=== PATIENT | female | born 1960 ===

== ENCOUNTER → 2018-09-29 08:51 | Outpatient (CLI) | payer OTHER, MEDICAID, SELFPAY ==
--- NOTE | 2018-09-29 08:53 | DI.RAD.S_ITS ---
PROCEDURE: XR CHEST 2V INDICATIONS: pleuritic chest pain TECHNIQUE: 2 views of the chest were acquired. COMPARISON: [facility], , CHEST 2 VIEW, 06/18/2010, 15:46. FINDINGS: Surgical changes and devices: None. Lungs and pleura: No pleural effusions or pneumothorax. Lungs are clear. Mediastinum: Mediastinal contours are normal. Heart size is normal. Bones and chest wall: No suspicious bony abnormalities. Soft tissues appear unremarkable. IMPRESSION: No acute cardiopulmonary disease process. Dictated by: Cayla Payan MD, PhD on 09/29/2018 at 12:13 Approved by: Cayla Payan MD, PhD on 09/29/2018 at 12:13
== END ==
PROVIDERS: Visit Provider Physician Assistant
DX: R07.81 Pleurodynia (principal); R05 Cough
CPT/HCPCS: 71046

== ENCOUNTER → 2020-07-23 14:12 | Outpatient (CLI) | payer OTHER, MEDICAID, SELFPAY ==
--- NOTE | 2020-07-23 14:16 | DI.RAD.S_ITS ---
PROCEDURE: XR CHEST 2V INDICATIONS: shortness of breath TECHNIQUE: 2 views of the chest were acquired. COMPARISON: [facility], , XR CHEST 2V, 09/29/2018, 9:13. FINDINGS: Surgical changes and devices: None. Lungs and pleura: Lungs are clear. No pleural effusions or pneumothorax. Mediastinum: Mediastinal contours are normal. Heart size is normal. Bones and chest wall: No suspicious bony abnormalities. Soft tissues appear unremarkable. IMPRESSION: No acute cardiopulmonary findings. Dictated by: Suzan Murray M.D. on 07/23/2020 at 16:24 Approved by: Suzan Murray M.D. on 07/23/2020 at 16:24
--- NOTE | 2020-07-23 14:16 | DI.RAD.S_ITS ---
PROCEDURE: XR HUMERUS RT 2V INDICATIONS: pain in right upper arm no trauma TECHNIQUE: 2 views of the humerus were acquired. COMPARISON: None. FINDINGS: Bones: No fractures or dislocations. No suspicious bony lesions. Soft tissues: No suspicious soft tissue calcifications. IMPRESSION: No acute radiographic findings. If there is continued pain, followup exam or additional imaging such as MRI or CT could be performed for further assessment. Dictated by: Suzan Murray M.D. on 07/23/2020 at 16:24 Approved by: Suzan Murray M.D. on 07/23/2020 at 16:25
== END ==
PROVIDERS: PCP Registered Nurse; Referring Provider Registered Nurse; Visit Provider Registered Nurse
DX: R06.02 Shortness of breath (principal); M79.621 Pain in right upper arm
CPT/HCPCS: 71046; 73060

== ENCOUNTER → 2020-07-31 14:20 | Outpatient (CLI) | payer OTHER, MEDICAID, SELFPAY ==
[2020-08-03 07:40] LABS: Fecal Immunochemical Test Negative (Negative)
== END ==
PROVIDERS: PCP Registered Nurse; Referring Provider Registered Nurse; Visit Provider Registered Nurse
DX: Z12.11 Encounter for screening for malignant neoplasm of colon (principal)
CPT/HCPCS: 82274

== ENCOUNTER → 2021-10-13 11:41 | Outpatient (CLI) | payer OTHER, MEDICAID, SELFPAY ==
--- NOTE | 2021-10-13 11:42 | DI.MG.S_ITS ---
BILATERAL DIGITAL SCREENING MAMMOGRAM 3D/2D WITH CAD: 10/13/2021 CLINICAL: Routine screening. Comparison is made to exam dated: 10/18/2007 mammogram - [facility]. The tissue of both breasts is predominantly fatty. Current study was also evaluated with a Computer Aided Detection (CAD) system. There is an asymmetry with an indistinct margin in the right breast anterior depth inferior region seen on the mediolateral oblique view only. No other significant masses, calcifications, or other findings are seen in either breast. IMPRESSION: INCOMPLETE: NEEDS ADDITIONAL IMAGING EVALUATION The asymmetry in the right breast is indeterminate. Additional views with possible ultrasound are recommended. This exam was interpreted at Station ID: [id number]. NOTE: For mammograms, a report in lay terms will be sent to the patient. Approximately 15% of breast malignancies will not be visualized mammographically. In the management of a palpable breast mass, a negative mammogram must not discourage biopsy of a clinically suspicious lesion. Electronically Signed By: Devon Bruner M.D., jr/telma:10/13/2021 12:51:59 letter sent: Additional Imaging Needed ACR BI-RADS Category 0: Incomplete [id number]
== END ==
PROVIDERS: PCP Registered Nurse; Referring Provider Registered Nurse; Visit Provider Registered Nurse
DX: Z12.31 Encounter for screening mammogram for malignant neoplasm of breast (principal)
CPT/HCPCS: 77063; 77067

== ENCOUNTER → 2021-10-14 08:51 | Outpatient (CLI) | payer OTHER, MEDICAID, SELFPAY ==
[2021-10-14 09:52] LABS: Add Manual Diff / Slide Review NO; Basophils Absolute Auto 100 /uL (0-100); Basophils Percent Auto 1.3 % (0-2); Eosinophils Absolute Auto 100 /uL (0-450); Eosinophils Percent Auto 2.2 % (2-4); Hematocrit 40.7 % (36-46); Hemoglobin 13.9 g/dL (12.0-16.0); Lymphocytes Absolute Auto 1500 /uL (1100-4500); Mean Corpuscular HGB Conc 34.1 % (30-36); Mean Corpuscular Hemoglobin 31.3 PG (26-34); Monocytes Absolute Auto 400 /uL (0-900); Monocytes Percent Auto 8.9 % (3-14); Neutrophils Absolute Auto 2400 /uL (1500-7000); Neutrophils Percent Auto 53.6 % (50-75); Platelet Count 219 X10^3/uL (150-400); Red Blood Cell Count 4.43 X10^6/uL (4.0-5.2); Red Cell Distribution Width 14.1 % (11.6-14.8); White Blood Cell Count 4.4 X10^3/uL (4.5-11.0)
[2021-10-14 09:53] LABS: COVID19 -Nasal RAPID Negative (Negative)
[2021-10-14 10:19] LABS: INR 1.1 (0.9-1.3); Prothrombin Time 11.9 SECONDS (10.1-12.7)
[2021-10-14 10:38] LABS: Alanine Aminotransferase 24 IU/L (<35); Albumin 4.3 g/dL (3.5-5.0); Albumin Globulin Ratio 1.5 (1.0-2.8); Alkaline Phosphatase 91 U/L (38-126); Aspartate Aminotransferase 30 IU/L (14-36); BUN Creatinine Ratio 19.8 (6-22); Bilirubin Total 0.4 mg/dL (0.2-1.3); Blood Urea Nitrogen 16 mg/dL (7-17); Calcium 9.8 mg/dL (8.4-10.2); Carbon Dioxide 33 mmol/L (22-32); Chloride 103 mmol/L (98-107); Estimated Glomerular Filt Rate > 60.0 mL/min (>60); Globulin 2.9 g/dL (1.7-4.1); Glucose 104 mg/dL (80-110); HEMOLYSIS < 15 (0-50); Potassium 4.4 mmol/L (3.4-5.1); Sodium 142 mmol/L (137-145); Total Protein 7.2 g/dL (6.3-8.2)
== END ==
PROVIDERS: PCP Registered Nurse; Referring Provider Registered Nurse; Visit Provider Registered Nurse
DX: R23.8 Other skin changes (principal)
CPT/HCPCS: 36415; 80053; 85025; 85610; 87635; C9803

== ENCOUNTER → 2021-10-14 08:56 | Outpatient (CLI) | payer OTHER, MEDICAID, SELFPAY ==
--- NOTE | 2021-10-20 10:14 | PM.PFT.1 ---
Pulmonary Function Test Referral & Results Date Patient Seen: 10/14/21 Requesting provider: Radha Banks Results: The spirometry demonstrates an FVC of 3.46 L which is 114% of predicted. The FEV1 was measured at 2.33 L which is 99% of predicted. The FEV1/FVC ratio was 67 which is 86% of predicted. Following the administration of bronchodilator there was 15% improvement in FEV1 and a 94% improvement in FEF 25-75% Lung volumes show an SVC of 3.54 L which is 125% of predicted. The diffusing capacity was measured at 20.39 which is 94% of predicted. The maximum voluntary ventilation was normal Interpretation: This study demonstrates normal pulmonary function
== END ==
PROVIDERS: PCP Registered Nurse; Referring Provider Registered Nurse; Visit Provider Registered Nurse
DX: R06.00 Dyspnea, unspecified (principal); R23.8 Other skin changes; Z20.822 Contact with and (suspected) exposure to COVID-19
CPT/HCPCS: 36415; 80053; 85025; 85610; 87635; 94060; 94726; 94729; C9803

== ENCOUNTER → 2021-10-15 14:33 | Outpatient (CLI) | payer OTHER, MEDICAID, SELFPAY ==
[2021-10-18 08:37] LABS: Fecal Immunochemical Test Negative (Negative)
== END ==
PROVIDERS: PCP Registered Nurse; Referring Provider Registered Nurse; Visit Provider Registered Nurse
DX: Z12.11 Encounter for screening for malignant neoplasm of colon (principal)
CPT/HCPCS: 82274

== ENCOUNTER 2021-10-26 12:09 | Observation (INO) | payer OTHER, MEDICAID, SELFPAY ==
[2021-10-26] VITALS (17 sets, daily range): BP systolic 102–157; BP diastolic 63–83; PULSE 65–93; RESP 15–33; TEMP 36.5–36.9; O2SAT 96–100; BMI 21.9
--- NOTE | 2021-10-26 12:26 | DI.RAD.S_ITS ---
PROCEDURE: XR CHEST 1V INDICATIONS: chest pain TECHNIQUE: One view of the chest was acquired. COMPARISON: [facility], CR, XR CHEST 2V, 07/23/2020, 14:09. [facility], CR, XR CHEST 2V, 09/29/2018, 9:13. FINDINGS: Surgical changes and devices: None. Lungs and pleura: Lungs are clear. Prominent lung volumes. No pleural effusions or pneumothorax. Mediastinum: Mediastinal contours appear normal. Heart size is normal. Bones and chest wall: No suspicious bony lesions. Overlying soft tissues appear unremarkable. IMPRESSION: No acute cardiopulmonary abnormality. Dictated by: Saran Sheridan M.D. on 10/26/2021 at 12:44 Approved by: Saran Sheridan M.D. on 10/26/2021 at 12:44
[2021-10-26 13:17] LABS: INR 1.1 (0.9-1.3); Prothrombin Time 11.9 SECONDS (10.1-12.7)
[2021-10-26 13:20] LABS: Add Manual Diff / Slide Review NO; Basophils Absolute Auto 100 /uL (0-100); Basophils Percent Auto 0.9 % (0-2); Eosinophils Absolute Auto 100 /uL (0-450); Eosinophils Percent Auto 1.1 % (2-4); Hematocrit 41.5 % (36-46); Hemoglobin 13.7 g/dL (12.0-16.0); Lymphocytes Absolute Auto 1300 /uL (1100-4500); Lymphocytes Percent Auto 24.1 % (25-40); Mean Corpuscular HGB Conc 32.9 % (30-36); Mean Corpuscular Hemoglobin 30.5 PG (26-34); Mean Corpuscular Volume 92.9 fL (80-100); Monocytes Absolute Auto 500 /uL (0-900); Monocytes Percent Auto 9.3 % (3-14); Neutrophils Absolute Auto 3500 /uL (1500-7000); Neutrophils Percent Auto 64.6 % (50-75); PTT Partial Thromboplastin Tim 35 SECONDS (26.4-36.2); Platelet Count 228 X10^3/uL (150-400); Red Blood Cell Count 4.47 X10^6/uL (4.0-5.2); Red Cell Distribution Width 14.5 % (11.6-14.8); White Blood Cell Count 5.4 X10^3/uL (4.5-11.0)
[2021-10-26 13:30] LABS: Alanine Aminotransferase 25 IU/L (<35); Albumin 4.3 g/dL (3.5-5.0); Albumin Globulin Ratio 1.2 (1.0-2.8); Alkaline Phosphatase 89 U/L (38-126); Aspartate Aminotransferase 30 IU/L (14-36); BUN Creatinine Ratio 16.5 (6-22); Bilirubin Total 0.4 mg/dL (0.2-1.3); Blood Urea Nitrogen 13 mg/dL (7-17); Calcium 9.5 mg/dL (8.4-10.2); Carbon Dioxide 32 mmol/L (22-32); Chloride 104 mmol/L (98-107); Creatine Kinase 50 U/L (30-135); Estimated Glomerular Filt Rate > 60.0 mL/min (>60); Globulin 3.6 g/dL (1.7-4.1); Glucose 119 mg/dL (80-110); HEMOLYSIS < 15 (0-50); Lipase 131 U/L (23-300); Magnesium 2.2 mg/dL (1.6-2.3); Potassium 3.9 mmol/L (3.4-5.1); Sodium 140 mmol/L (137-145); Total Protein 7.9 g/dL (6.3-8.2)
[2021-10-26 13:42] LABS: Troponin I < 0.012 ng/mL (0.01-0.034)
--- NOTE | 2021-10-26 14:27 | ED.CHESTPAIN ---
HPI - Chest Pain General Chief Complaint: Chest Pain Stated Complaint: Chest pain Time Seen by Provider: 10/26/21 14:11 Source: patient Mode of arrival: Ambulatory Limitations: no limitations History of Present Illness HPI narrative: Patient is a 61-year-old female with history of progressive MS, presenting today with increasing left-sided chest discomfort. She says she has had off and on for a few weeks but seems to be getting progressively worse. It comes at rest and with exertion in 1 particular area a but does move a little bit. She has some shortness of breath. No fever chills or cough no hemoptysis. Pain is not reproducible palpation. She says this feels different than her ?MS toya.She is having jaw pain occasionally a she has bilateral arm pain the last couple of days. She also states that today she has some bilateral arm pains that she can not quite describe. Related Data Home Medications Medication Instructions Recorded Confirmed cholecalciferol (vitamin D3) 50 50 mcg PO DAILY 07/23/20 10/26/21 mcg (2,000 unit) capsule magnesium oxide 500 mg tablet 500 mg PO DAILY 07/23/20 10/26/21 melatonin 10 mg capsule 10 mg PO BEDTIME PRN 07/23/20 10/26/21 CBD as needed for sleep and PO 09/27/21 09/27/21 spasticity alpha lipoic acid 1 tab PO DAILY 09/27/21 10/26/21 baclofen 20 mg PO QID 09/27/21 10/26/21 gabapentin 100 mg capsule 100 mg PO BEDTIME 09/27/21 10/26/21 Allergies Allergy/AdvReac Type Severity Reaction Status Date / Time No Known Drug Allergies Allergy Verified 10/26/21 12:28 Review of Systems Review of Systems Narrative: GENERAL: Denies chills, fatigue, malaise, fever, sweats, travel HEENT: Denies sinus pain, ear pain, sore throat, difficulty swallowing, neck pain RESPIRATORY: Denies dyspnea, cough, wheezing, hemoptysis, sputum. CARDIOVASCULAR: See HPI GASTROINTESTINAL: Denies nausea, vomiting, abdominal pain, diarrhea, constipation, melena. : Denies dysuria, frequency, incontinence, hematuria, urinary retention, flank pain. MUSCULOSKELETAL: Denies weakness, joint pain, or bony pain SKIN: No rash, no erythema, no pruritus NEUROLOGIC: Denies weakness, dizziness, headache, numbness, change in speech, confusion PSYCHIATRIC: No concerning psychosocial issues. 12 point review of systems is negative except for those stated above and HPI Patient History Medical History Bruises easily Cervical cancer screening Dizziness Dyspnea Generalized headaches (Unknown) GERD (gastroesophageal reflux disease) History of appendicitis (~1979) Insomnia Multiple sclerosis Muscle pain Screening for HPV (human papillomavirus) Surgical History Hx of appendectomy (~1979) Family History Grandfather Diabetes mellitus Family/Other Diabetes mellitus Social History household members: significant other Smoking Status: Former smoker alcohol intake: never Smoking Status: Former smoker alcohol intake frequency: holidays/special occasions only Substance Use Type: does not use Exam Initial Vital Signs Initial Vital Signs: Vital Signs Temperature 98.4 F 10/26/21 12:23 Pulse Rate 78 10/26/21 12:23 Respiratory Rate 15 10/26/21 12:23 Blood Pressure 157/83 H 10/26/21 12:23 Pulse Oximetry 99 10/26/21 12:23 GENERAL: Alert well-appearing 61-year-old female and in no acute distress. HEENT: Head atraumatic,EOMI, pupils reactive, face symmetric, moist mucous membranes CARDIOVASCULAR: Regular rate and rhythm without murmurs, rubs or gallops. RESPIRATORY: Breath sounds equal bilaterally, no wheezes rales or rhonchi. ABDOMEN: Soft, nontender. Normoactive bowel sounds all 4 quadrants. No guarding or rebound. EXTREMITIES: Normal range of motion, no clubbing or edema. Neurovascularly intact NEUROLOGICAL: Alert and oriented x4.Normal gait and speech. SKIN: Warm, dry, no laceration, no petechiae, no rashes or lesions. Scores HEART Score Heart Score history: Moderately Suspicious Heart Score EKG: Normal Heart Score Age: 45-64 years old Heart Score risk factors: No known risk factors Heart Score troponin: < or = to normal limit Heart Score Total: 2 PERC Score Age greater than or equal to 50 years: Yes Heart rate greater than or equal to 100 bpm: No Room Air O2 Sat less than 95%: No Unilateral leg swelling: No Recent trauma or surgery: No Hemoptysis: No Prior PE or DVT: No Hormone Use: No Total PERC Score: 1 Course Orders Ordered: ED Orders 10/26/21 12:20 EKG-12 Lead Stat 10/26/21 12:26 XR chest 1V Stat 10/26/21 12:40 Complete Blood Count AUTO DIFF Stat Comprehensive Metabolic Panel Stat Lipase Stat Magnesium Stat Partial Thromboplastin Time Stat Prothrombin Time INR Stat Troponin & CK Cardiac Panel Stat 10/26/21 14:28 EKG-12 Lead Stat 10/26/21 14:47 D Dimer Stat Trop I [Troponin I] Stat Acetaminophen (Acetaminophen 325 Mg Tablet) 650 mg PO Q6HR PRN PRN Reason: Fever/Mild Pain (1-3) Enoxaparin Sodium (Enoxaparin 40 Mg/0.4 Ml Syringe) 40 mg SUBCUT DAILY CHRIS Naloxone HCl (Naloxone 0.4 Mg/Ml Vial) 0.2 mg IV Q2MIN PRN PRN Reason: Opiate Reversal Ondansetron HCl (Ondansetron 4 Mg/2 Ml Inj) 4 mg IV Q8HR PRN PRN Reason: Nausea And Vomiting Oxycodone HCl (Oxycodone Ir 5 Mg Tablet) 5 mg PO Q6HR PRN PRN Reason: Pain, Moderate (4-6) Discontinued Medications Aspirin (Aspirin 81 Mg Chew Tab) 324 mg PO NOW ONE Stop: 10/26/21 16:30 Last Admin: 10/26/21 16:35 Dose: 324 mg Documented by: TALA Vital Signs Vital signs: Vital Signs - 8 hr 10/26/21 12:23 10/26/21 12:24 10/26/21 12:30 Temperature 98.4 F Pulse Rate 93 H 80 76 Respiratory Rate 15 21 Blood Pressure 157/83 H 157/83 H Pulse Oximetry 97 98 98 10/26/21 12:31 10/26/21 12:40 10/26/21 13:00 Temperature Pulse Rate 77 78 77 Respiratory Rate 33 H 20 21 Blood Pressure 135/75 121/75 132/73 Pulse Oximetry 98 96 97 10/26/21 13:36 10/26/21 13:39 10/26/21 14:00 Temperature Pulse Rate 75 68 66 Respiratory Rate 19 20 Blood Pressure 126/66 117/71 Pulse Oximetry 99 99 100 10/26/21 14:30 10/26/21 15:00 10/26/21 15:30 Temperature Pulse Rate 65 71 65 Respiratory Rate 17 17 20 Blood Pressure 116/69 108/63 102/66 Pulse Oximetry 98 97 97 10/26/21 16:00 Temperature Pulse Rate 73 Respiratory Rate 20 Blood Pressure 122/71 Pulse Oximetry 97 MDM - Chest Pain Lab Data Result diagrams: 10/26/21 12:40 10/26/21 12:40 Labs: Lab Results 10/26/21 10/26/21 10/26/21 Range/Units 12:40 12:40 12:40 WBC 5.4 (4.5-11.0) X10^3/uL RBC 4.47 (4.0-5.2) X10^6/uL Hgb 13.7 (12.0-16.0) g/dL Hct 41.5 (36-46) % MCV 92.9 (80-100) fL MCH 30.5 (26-34) PG MCHC 32.9 (30-36) % RDW 14.5 (11.6-14.8) % Plt Count 228 (150-400) X10^3/uL Neut % (Auto) 64.6 (50-75) % Lymph % (Auto) 24.1 L (25-40) % [place] % (Auto) 9.3 (3-14) % Eos % (Auto) 1.1 L (2-4) % Baso % (Auto) 0.9 (0-2) % Neut # (Auto) 3500 (8168-4287) /uL Lymph # (Auto) 1300 (4518-8906) /uL [place] # (Auto) 500 (0-900) /uL Eos # (Auto) 100 (0-450) /uL Baso # (Auto) 100 (0-100) /uL PT 11.9 (10.1-12.7) SECONDS INR 1.1 (0.9-1.3) APTT 35 (26.4-36.2) SECONDS D-Dimer (<230) ng/mL Sodium 140 (137-145) mmol/L Potassium 3.9 (3.4-5.1) mmol/L Chloride 104 (98-107) mmol/L Carbon Dioxide 32 (22-32) mmol/L BUN 13 (7-17) mg/dL Creatinine 0.79 (0.52-1.04) mg/dL Estimated GFR > 60.0 (>60) mL/min BUN/Creatinine Ratio 16.5 (6-22) Glucose 119 H (80-110) mg/dL Calcium 9.5 (8.4-10.2) mg/dL Magnesium 2.2 (1.6-2.3) mg/dL Total Bilirubin 0.4 (0.2-1.3) mg/dL AST 30 (14-36) IU/L ALT 25 (<35) IU/L Alkaline Phosphatase 89 (38-126) U/L Total Creatine Kinase 50 (30-135) U/L CK-MB (CK-2) TNP CK-MB (CK-2) Rel Index TNP Troponin I < 0.012 (0.01-0.034) ng/mL Total Protein 7.9 (6.3-8.2) g/dL Albumin 4.3 (3.5-5.0) g/dL Globulin 3.6 (1.7-4.1) g/dL Albumin/Globulin Ratio 1.2 (1.0-2.8) Lipase 131 (23-300) U/L 10/26/21 10/26/21 Range/Units 14:47 14:47 WBC (4.5-11.0) X10^3/uL RBC (4.0-5.2) X10^6/uL Hgb (12.0-16.0) g/dL Hct (36-46) % MCV (80-100) fL MCH (26-34) PG MCHC (30-36) % RDW (11.6-14.8) % Plt Count (150-400) X10^3/uL Neut % (Auto) (50-75) % Lymph % (Auto) (25-40) % [place] % (Auto) (3-14) % Eos % (Auto) (2-4) % Baso % (Auto) (0-2) % Neut # (Auto) (2238-0157) /uL Lymph # (Auto) (2255-6310) /uL [place] # (Auto) (0-900) /uL Eos # (Auto) (0-450) /uL Baso # (Auto) (0-100) /uL PT (10.1-12.7) SECONDS INR (0.9-1.3) APTT (26.4-36.2) SECONDS D-Dimer < 200 (<230) ng/mL Sodium (137-145) mmol/L Potassium (3.4-5.1) mmol/L Chloride (98-107) mmol/L Carbon Dioxide (22-32) mmol/L BUN (7-17) mg/dL Creatinine (0.52-1.04) mg/dL Estimated GFR (>60) mL/min BUN/Creatinine Ratio (6-22) Glucose (80-110) mg/dL Calcium (8.4-10.2) mg/dL Magnesium (1.6-2.3) mg/dL Total Bilirubin (0.2-1.3) mg/dL AST (14-36) IU/L ALT (<35) IU/L Alkaline Phosphatase (38-126) U/L Total Creatine Kinase (30-135) U/L CK-MB (CK-2) CK-MB (CK-2) Rel Index Troponin I < 0.012 (0.01-0.034) ng/mL Total Protein (6.3-8.2) g/dL Albumin (3.5-5.0) g/dL Globulin (1.7-4.1) g/dL Albumin/Globulin Ratio (1.0-2.8) Lipase (23-300) U/L Imaging Data Chest x-ray: Radiologist's Impression: PROCEDURE:? XR CHEST 1V ? INDICATIONS:? chest pain ? TECHNIQUE:? One view of the chest was acquired.? ? COMPARISON:? [facility], , XR CHEST 2V, 07/23/2020, 14:09.? [facility], , XR CHEST 2V, 09/29/2018, 9:13. ? FINDINGS:? ? Surgical changes and devices:? None.? ? Lungs and pleura:? Lungs are clear.? Prominent lung volumes.? No pleural effusions or pneumothorax.? ? Mediastinum:? Mediastinal contours appear normal.? Heart size is normal.? ? Bones and chest wall:? No suspicious bony lesions.? Overlying soft tissues appear unremarkable.? ? IMPRESSION:? No acute cardiopulmonary abnormality. ? ? ? Dictated by: Saran Sheridan M.D. on 10/26/2021 at 12:44 ? ? ECG Data Interpretation: Normal sinus rhythm rate [address] changes no T-wave inversions p.r. interval 96 QRS 84, QTC 433 2.: Sinus rhythm rate 64 repeat EKG no change MDM Narrative Medical decision making narrative: The patient has multiple symptoms that could be concerning for coronary artery disease symptoms seem to be getting worse. She has had jaw pain she can not really describe she has chest pain which is not reproducible she now has some bilateral arm pain. She has 2- troponins not concerning EKGs D-dimer is negative as well. She has a low risk heart score however multiple symptoms. There is certainly some component of anxiety as well. Dr. Adair, in ED see and evaluate patient half-way cups observation Discharge Plan Departure Patient Disposition: Admitted as Observation Clinical Impression: Chest pain Admit Date/Time: 10/26/21 16:24 Admit Provider: Dillon Adair
[2021-10-26 15:06] LABS: D Dimer < 200 ng/mL (<230)
[2021-10-26 15:19] LABS: Troponin I < 0.012 ng/mL (0.01-0.034)
[2021-10-26] MEDS: ASPIRIN 81 MG CHEW TAB 324 MG PO (16:35)
--- NOTE | 2021-10-26 17:06 | P.HP_ITS ---
History of Present Illness History of Present Illness Date Patient Seen: 10/26/21 Time Patient Seen: 16:30 Chief complaint: Chest pain Narrative: Ms. Paez is a 61W with PMH of MS not on DMDs who presents to the hospital with chest pain. She has noted since the end of August that she has left sided usually sharp, but sometimes dull chest pain. It is over and below her left breat. She has chronic issues with shortness of breath for years, and has not had worsening with her chest pain. She has noted jaw pain, but not sure if it's at the same time. Her chest pain is not associated with exertion. She has noted she has been stressed, and she does breathing exercises and her chest pain resolves. She has no fevers/chills, cough. Her pain is not reproducible. She has GERD, but not noted any reflux. In the ED workup was done, vitals were notable for high blood pressure. Labs notable for WBC 5.4, hgb 13.7, plts 228, creatinine 0.79. Troponin negative. D-dimer negative. Chest xray showed no acute process. EKG showed no acute ischemia. She was given aspirin and admitted for further treatment. Patient History Medical History Bruises easily Cervical cancer screening Dizziness Dyspnea Generalized headaches (Unknown) GERD (gastroesophageal reflux disease) History of appendicitis (~1979) Insomnia Multiple sclerosis Muscle pain Screening for HPV (human papillomavirus) Surgical History Hx of appendectomy (~1979) Family & Social History Family History Grandfather Diabetes mellitus Family/Other Diabetes mellitus Safety & Behavioral: Feels Safe in Current Yes Environment Been Physically Hurt or No Threatened By a Person Tobacco & Substance use: Smoking Status Former smoker alcohol intake never alcohol intake frequency holiday/special occasion Substance Use Type does not use Meds Home Medications and Allergies Home Medications Medication Instructions Recorded Confirmed Type cholecalciferol (vitamin D3) 50 50 mcg PO DAILY 07/23/20 09/27/21 History mcg (2,000 unit) capsule magnesium oxide 500 mg tablet 500 mg PO DAILY 07/23/20 09/27/21 History melatonin 10 mg capsule 10 mg PO BEDTIME PRN 07/23/20 09/27/21 History CBD as needed for sleep and PO 09/27/21 09/27/21 History spasticity alpha lipoic acid PO 09/27/21 09/27/21 History baclofen PO 09/27/21 History gabapentin 100 mg capsule 100 mg PO BEDTIME 09/27/21 09/27/21 History omeprazole 20 mg capsule,delayed 20 mg PO DAILY #30 cap 09/27/21 09/27/21 Rx release Allergies Allergy/AdvReac Type Severity Reaction Status Date / Time No Known Drug Allergies Allergy Verified 10/26/21 12:28 Review of Systems Review of Systems Narrative: 14 systems reviewed and negative aside from what is noted in HPI Exam Vital Signs (past 8 hours): - 10/26/21 12:23 10/26/21 12:24 10/26/21 12:30 Temperature 98.4 F Pulse Rate 93 H 80 76 Respiratory Rate 15 21 Blood Pressure 157/83 H 157/83 H Pulse Oximetry 97 98 98 10/26/21 12:31 10/26/21 12:40 10/26/21 13:00 Temperature Pulse Rate 77 78 77 Respiratory Rate 33 H 20 21 Blood Pressure 135/75 121/75 132/73 Pulse Oximetry 98 96 97 10/26/21 13:36 10/26/21 13:39 10/26/21 14:00 Temperature Pulse Rate 75 68 66 Respiratory Rate 19 20 Blood Pressure 126/66 117/71 Pulse Oximetry 99 99 100 10/26/21 14:30 10/26/21 15:00 10/26/21 15:30 Temperature Pulse Rate 65 71 65 Respiratory Rate 17 17 20 Blood Pressure 116/69 108/63 102/66 Pulse Oximetry 98 97 97 10/26/21 16:00 Temperature Pulse Rate 73 Respiratory Rate 20 Blood Pressure 122/71 Pulse Oximetry 97 Oxygen Delivery Method Room Air Narrative Exam Narrative: GEN: no acute distress HEENT: moist mucous membranes, PERRL NECK: trachea midline, no JVD CV: regular rate and rhythm, no murmurs PULM: clear bilaterally, no wheezes, rhonchi rales ABD: soft, nontender, nondistended, no organomegaly EXT: warm and well perfused with no edema NEURO: no focal deficitis PSYCH: pleasant, cooperative, anxious Objective Labs Result Diagrams: 10/26/21 12:40 10/26/21 12:40 Labs: Laboratory Results - last 24 hr 10/26/21 10/26/21 10/26/21 12:40 12:40 12:40 WBC 5.4 RBC 4.47 Hgb 13.7 Hct 41.5 MCV 92.9 MCH 30.5 MCHC 32.9 RDW 14.5 Plt Count 228 Neut % (Auto) 64.6 Lymph % (Auto) 24.1 L [place] % (Auto) 9.3 Eos % (Auto) 1.1 L Baso % (Auto) 0.9 Neut # (Auto) 3500 Lymph # (Auto) 1300 [place] # (Auto) 500 Eos # (Auto) 100 Baso # (Auto) 100 PT 11.9 INR 1.1 APTT 35 D-Dimer Sodium 140 Potassium 3.9 Chloride 104 Carbon Dioxide 32 BUN 13 Creatinine 0.79 Estimated GFR > 60.0 BUN/Creatinine Ratio 16.5 Glucose 119 H Calcium 9.5 Magnesium 2.2 Total Bilirubin 0.4 AST 30 ALT 25 Alkaline Phosphatase 89 Total Creatine Kinase 50 CK-MB (CK-2) TNP CK-MB (CK-2) Rel Index TNP Troponin I < 0.012 Total Protein 7.9 Albumin 4.3 Globulin 3.6 Albumin/Globulin Ratio 1.2 Lipase 131 10/26/21 10/26/21 14:47 14:47 WBC RBC Hgb Hct MCV MCH MCHC RDW Plt Count Neut % (Auto) Lymph % (Auto) [place] % (Auto) Eos % (Auto) Baso % (Auto) Neut # (Auto) Lymph # (Auto) [place] # (Auto) Eos # (Auto) Baso # (Auto) PT INR APTT D-Dimer < 200 Sodium Potassium Chloride Carbon Dioxide BUN Creatinine Estimated GFR BUN/Creatinine Ratio Glucose Calcium Magnesium Total Bilirubin AST ALT Alkaline Phosphatase Total Creatine Kinase CK-MB (CK-2) CK-MB (CK-2) Rel Index Troponin I < 0.012 Total Protein Albumin Globulin Albumin/Globulin Ratio Lipase Assessment & Plan Assessment & Plan narrative: Ms. Paez is a 61W with PMH MS who presents with chest pain. 1. Chest pain -EKG showed no acute ischemia -tropnins negative x2 -continue to trend troponins -received aspirin in ED -continue aspirin and statin -ordered for stress test 2. Multiple sclerosis -not currently on DMDs -continue symptomatic control CODE: Full Proxy: Dale Godoy, life partner I have utilized all available resources to reconcile the patient's home medications. Time Spent With Patient Critical Care time: I spent a total of [] minutes of critical care time on this patient's care today; this time is exclusive of procedural time. Quality MIPS - Admit I confirm the patient?s Advance Care Plan is present, Code status is documented, Surrogate decision maker is in patient?s record [If Yes, STOP here]: Yes
[2021-10-26 18:14] LABS: COVID19 - ADMIT (NP swab/PCR) Negative (Negative)
[2021-10-26] MEDS: MELATONIN 3 MG TABLET 9 MG PO (21:34)
[2021-10-26] MEDS: GABAPENTIN 100 MG CAPSULE PO (21:35)
[2021-10-26] MEDS: BACLOFEN 10 MG TABLET 20 MG PO (22:02)
[2021-10-26 23:07] LABS: Troponin I < 0.012 ng/mL (0.01-0.034)
[2021-10-27 00:05] VITALS: BP 107/66; PULSE 61; RESP 16; TEMP 36.4; O2SAT 97
[2021-10-27 04:00] VITALS: BP 105/64; PULSE 75; RESP 18; TEMP 36.6; O2SAT 95
[2021-10-27 06:12] LABS: Add Manual Diff / Slide Review NO; Basophils Absolute Auto 0 /uL (0-100); Basophils Percent Auto 1.1 % (0-2); Eosinophils Absolute Auto 100 /uL (0-450); Eosinophils Percent Auto 2.8 % (2-4); Hematocrit 37.2 % (36-46); Hemoglobin 12.3 g/dL (12.0-16.0); Lymphocytes Absolute Auto 1700 /uL (1100-4500); Lymphocytes Percent Auto 36.1 % (25-40); Mean Corpuscular Hemoglobin 30.4 PG (26-34); Mean Corpuscular Volume 92.1 fL (80-100); Monocytes Absolute Auto 500 /uL (0-900); Monocytes Percent Auto 10.3 % (3-14); Neutrophils Absolute Auto 2300 /uL (1500-7000); Neutrophils Percent Auto 49.7 % (50-75); Platelet Count 202 X10^3/uL (150-400); Red Blood Cell Count 4.04 X10^6/uL (4.0-5.2); Red Cell Distribution Width 14.2 % (11.6-14.8); White Blood Cell Count 4.7 X10^3/uL (4.5-11.0)
[2021-10-27 06:28] LABS: Troponin I < 0.012 ng/mL (0.01-0.034)
[2021-10-27 06:48] LABS: BUN Creatinine Ratio 20.3 (6-22); Blood Urea Nitrogen 14 mg/dL (7-17); Carbon Dioxide 31 mmol/L (22-32); Chloride 106 mmol/L (98-107); Estimated Glomerular Filt Rate > 60.0 mL/min (>60); Glucose 93 mg/dL (80-110); HEMOLYSIS < 15 (0-50); Potassium 4.3 mmol/L (3.4-5.1); Sodium 138 mmol/L (137-145)
[2021-10-27 07:28] LABS: Cholesterol 197 mg/dL (140-199); HDL Cholesterol 92 mg/dL (40-60); LDL Cholesterol Calculated 97 mg/dL (<100); Triglycerides 40 mg/dL (35-150)
[2021-10-27 07:30] LABS: Hemoglobin A1C% w Est Avg Glu 5.6 % (4.0-6.0)
[2021-10-27 08:00] VITALS: BP 102/63; PULSE 73; RESP 16; TEMP 36.1; O2SAT 97
[2021-10-27 08:35] VITALS: O2SAT 99
--- NOTE | 2021-10-27 09:34 | CM.DANOTE ---
Addendum entered by ANGÉLICA Monk 10/27/21 14:23: ADD: Per , pt has no signs of heart attach and cardiac monitoring was unremarkable and pt medically stable to d/c to home today with outpt f/u with PCP and Neurologist. No identified barriers to discharge. Patient to d/c home today via Sig Other POV and no further SW needs at this time. BF Original Note: Patient is a 61 yo female who was admitted on 10/26/21 for Chest Pain. Pt has [employer] and [employer] for insurance and her PCP is Radha Tamayo at [facility]. EMR was reviewed. Per , pt with chronic SOB and admitted for chest pain and stress test ordered for today. Per RN, pt scheduled for stress test around 1100 but second part of stress test may not be available until tomorrow pending schedule. SW met bedside with pt and explained role and pt confirms that she lives in [facility] with her life partner Dale and is active and independent at baseline and drives and does not use DME. Pt denies any hx of HH or SNF and preference is home with Dale and pt states Dale is just waiting to hear if pt has to remain in the hospital overnight and will then bring her belongings like lap top and personal affects or to transport her home today and Dale does not have concerns driving in snow or ice. Pt does not anticipate any d/c needs but is hopeful to get answers on regarding chest pain etiology. Plan: SW to follow for stress test results towards confirming safe d/c home with Sig Other and any further identified discharge planning needs. ANGÉLICA Monk Discharge Planning/Care Management CM Discharge Assessment Start: 10/27/21 09:32 Freq: Status: Active Protocol: Document 10/27/21 09:32 BF (Rec: 10/27/21 09:34 [id number]) Discharge Planning Assessment Assigned Library Sales Consultant ANGÉLICA Sky DPOA/Assigned Designee Name informally life partner Dale Godoy Advance Directives? No Advance Directives on File No History Provided By Patient,Medical Record Has Patient been admitted in last 30 No days? Prior Living Arrangements Apartment/Condo Household Members significant other Type of transporation used prior to Drives own vehicle admit Independent with ADL's Yes Is patient alert and oriented? Yes Caregiver for Another No Barriers to Discharge No Discharge Plan Home Transportation Arrangement States sig other Dale can transport and comfortable driving in snow and ice Referrals Initiated None needed Whiteboard Updated in Patient Room with Yes name and ext. # of Library Sales Consultant Review Status In Process Please Provide Date Initial DC 10/27/21 Assessment Was Performed Next Review Type Continued Stay Review
--- NOTE | 2021-10-27 09:38 | PC.NURSE ---
Assess- Patient is alert and oriented x3, she denies pain or discomfort. Patient will go down for her stress test around 11am and po medication will be given at 1000am. She has some stress incontinents, give clean pads to change with. Patient took a walk in the halls and is steady on her feet. She denies chest pain for this RN but states that for the last couple of months she has a taste of mint in her mouth.
[2021-10-27] MEDS: ENOXAPARIN 40 MG/0.4 ML SYRINGE SUBCUT (10:04)
[2021-10-27] MEDS: BACLOFEN 10 MG TABLET 20 MG PO ×2 (10:04→14:19)
[2021-10-27] MEDS: ASPIRIN EC 81 MG TABLET PO (10:04)
[2021-10-27 12:00] VITALS: BP 104/68; PULSE 76; RESP 16; TEMP 36.2; O2SAT 100
--- NOTE | 2021-10-27 19:03 | P.DS_ITS ---
History of Present Illness History of Present Illness Chief complaint: Chest pain Narrative: Ms. Paez is a 61W with PMH of MS not on DMDs who presents to the hospital with chest pain. She has noted since the end of August that she has left sided usually sharp, but sometimes dull chest pain. It is over and below her left breat. She has chronic issues with shortness of breath for years, and has not had worsening with her chest pain. She has noted jaw pain, but not sure if it's at the same time. Her chest pain is not associated with exertion. She has noted she has been stressed, and she does breathing exercises and her chest pain resolves. She has no fevers/chills, cough. Her pain is not reproducible. She has GERD, but not noted any reflux. In the ED workup was done, vitals were notable for high blood pressure. Labs notable for WBC 5.4, hgb 13.7, plts 228, creatinine 0.79. Troponin negative. D-dimer negative. Chest xray showed no acute process. EKG showed no acute ischemia. She was given aspirin and admitted for further treatment. Discharge Providers Provider Date of admission: 10/26/21 16:24 Discharge Date: 10/27/21 Primary care physician: CHRISTY Abraham Consults: 10/26/21 18:34 Consult to Dietitian, Adult Routine Comment: Reason For Exam: admission nutrition exam score Discharge provider: Dillon Adair MD Summary Hospital Course Discharge Diagnosis: 1. Chest pain 2. Multiple sclerosis Hospital Course: Ms. Paez came in to the hospital with chest pain intermittently for weeks. She had negative troponins, negative EKG. She remained off oxygen. Chest xray unremarkable. No arrhythmias noted on telemetry. She did undergo stress test w hich was low risk for ischemia. She was able to be discharged home. She was recommended to take nsaids for the next 5 days to see if this provided any relief. Exam Vital Signs (past 8 hours): - 10/27/21 12:00 Temperature 97.2 F L Pulse Rate 76 Respiratory Rate 16 Blood Pressure 104/68 Pulse Oximetry 100 Oxygen Delivery Method Room Air Oxygen Flow Rate 0 Narrative Exam Narrative: GEN: no acute distress HEENT: moist mucous membranes, PERRL NECK: trachea midline, no JVD CV: regular rate and rhythm, no murmurs PULM: clear bilaterally, no wheezes, rhonchi rales ABD: soft, nontender, nondistended, no organomegaly EXT: warm and well perfused with no edema NEURO: no focal deficitis PSYCH: pleasant, cooperative, anxious Objective Labs Result Diagrams: 10/27/21 05:41 10/27/21 05:41 Labs: Laboratory Results - last 24 hr 10/26/21 10/27/21 10/27/21 22:18 05:41 05:41 WBC 4.7 RBC 4.04 Hgb 12.3 Hct 37.2 MCV 92.1 MCH 30.4 MCHC 33.0 RDW 14.2 Plt Count 202 Neut % (Auto) 49.7 L Lymph % (Auto) 36.1 [place] % (Auto) 10.3 Eos % (Auto) 2.8 Baso % (Auto) 1.1 Neut # (Auto) 2300 Lymph # (Auto) 1700 [place] # (Auto) 500 Eos # (Auto) 100 Baso # (Auto) 0 Sodium 138 Potassium 4.3 Chloride 106 Carbon Dioxide 31 BUN 14 Creatinine 0.69 Estimated GFR > 60.0 BUN/Creatinine Ratio 20.3 Glucose 93 Hemoglobin A1c Calcium 9.0 Troponin I < 0.012 Triglycerides Cholesterol LDL Cholesterol, Calc HDL Cholesterol 10/27/21 10/27/21 10/27/21 05:41 05:41 05:41 WBC RBC Hgb Hct MCV MCH MCHC RDW Plt Count Neut % (Auto) Lymph % (Auto) [place] % (Auto) Eos % (Auto) Baso % (Auto) Neut # (Auto) Lymph # (Auto) [place] # (Auto) Eos # (Auto) Baso # (Auto) Sodium Potassium Chloride Carbon Dioxide BUN Creatinine Estimated GFR BUN/Creatinine Ratio Glucose Hemoglobin A1c 5.6 Calcium Troponin I < 0.012 Triglycerides 40 Cholesterol 197 LDL Cholesterol, Calc 97 HDL Cholesterol 92 H [facility] Medical History Bruises easily Cervical cancer screening Dizziness Dyspnea Generalized headaches (Unknown) GERD (gastroesophageal reflux disease) History of appendicitis (~1979) Insomnia Multiple sclerosis Muscle pain Screening for HPV (human papillomavirus) Surgical History Hx of appendectomy (~1979) Family History Grandfather Diabetes mellitus Family/Other Diabetes mellitus Social History household members: significant other Smoking Status: Former smoker alcohol intake: never Discharge Plan Discharge Plan Patient Disposition: Home Provider Discharge Comment: Ms. Paez came in to the hospital with chest pain. She had no heart attack. 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 She had a stress test that was reassuring. She is recommended to take nsaids with food for 5 days and monitor if her chest pain improves. She should follow up with her neurologist and PCP in the next 2 weeks. Discharge orders & Medications Prescriptions: Continued cholecalciferol (vitamin D3) 50 mcg (2,000 unit) capsule 50 mcg PO DAILY 0RF melatonin 10 mg capsule 10 mg PO BEDTIME PRN (Reason: Sleep) 0RF magnesium oxide 500 mg tablet 500 mg PO DAILY 0RF baclofen 20 mg 20 mg PO QID 0RF gabapentin 100 mg capsule 100 mg PO BEDTIME 0RF alpha lipoic acid 600 mg 1 tab PO DAILY 0RF CBD as needed for sleep and spasticity PO 0RF Follow up/Referrals: Radha Banks ARNP [Primary Care Provider] - Diet/Activity/Treatments Diet: Diet as Tolerated Visit Report/Discharge Packet Instructions: DI for Chest Pain Discharge Data Primary Care Provider: Radha Banks Attending Provider: Dillon Adair
--- NOTE | 2021-10-28 13:24 | DI.NM.S_ITS ---
DATE OF SERVICE: PROCEDURE: One day treadmill stress only nuclear study. RADIOPHARMACEUTICAL: 27.4 mCi of technetium 99m was given to the patient at peak exercise on treadmill to obtain nuclear images which were one about 20 minutes after the treadmill portion was done. HEMODYNAMICS AND HEART RATE: The patient exercised on the treadmill and reached 98 percent of max predicted heart rate. 7.0 METS with DEENA +8 percent achieved, suggesting slightly reduced exercise capacity. Appropriate hemodynamic response for exercise. ECG: No ST changes to suggest ischemia. No significant activity. SYMPTOMS: No chest pain and no anginal equivalent symptoms. GATED IMAGES: Left ventricular end diastolic volume was 67 cc and the ejection fraction was 88 percent post stress. No focal wall motion abnormalities noted. PERFUSION: Normal stress prone images suggesting no ischemia or infarction. CONCLUSION: LOW RISK, NORMAL TREADMILL ONLY NUCLEAR STRESS TEST. SLIGHTLY REDUCED EXERCISE CAPACITY AND NO ANGINAL SYMPTOMS. Lizzette Paez - ZACK/zuly/raquel doc#: [id number]/job#: [id number] dd: 10/27/2021 13:23:00 dt: 10/27/2021 14:05:00 DICTATING /COPIES TO: Catrina Miller MD COPIES MNE: SAMMI;
== END 2021-10-27 15:09 | disposition home or self-care (01) ==
LOC: ED 16:16 → AC 16:25
PROVIDERS: Nurse Practitioner Family; Admitting Provider Internal Medicine; Emergency Provider Emergency Medicine; PCP Registered Nurse; Referring Provider Emergency Medicine; Visit Provider Internal Medicine
DX: R07.9 Chest pain, unspecified (principal); G35 Multiple sclerosis; K21.9 Gastro-esophageal reflux disease without esophagitis; Z20.822 Contact with and (suspected) exposure to COVID-19
CPT/HCPCS: 36415; 71045; 78451; 80048; 80053; 80061; 82550; 83036; 83690; 83735; 84484; 85025; 85379; 85610; 85730; 87635; 93005; 93017; 94760; 96372; 99284; C9803; G0378; A9502; J1650

== ENCOUNTER → 2021-11-18 08:35 | Outpatient (CLI) | payer OTHER, MEDICAID, SELFPAY ==
[2021-10-26 18:15] VITALS: BMI 21.9
--- NOTE | 2021-11-18 08:39 | DI.US.S_ITS ---
LIMITED ULTRASOUND OF RIGHT BREAST: 11/18/2021 CLINICAL: Patient returns today to evaluate a focal asymmetry in the right breast. Comparison is made to exams dated: 11/18/2021 mammogram, 10/13/2021 mammogram - [facility], 10/18/2007 mammogram - [facility], and 10/18/2007 [facility]. Color flow and real-time ultrasound of the right breast 5-7 o'clock region were performed on the areas of interest. There is a 0.3 cm x 0.2 cm x 0.2 cm round cyst in the right breast at 6 o'clock in the retroareolar region. This round cyst is hypoechoic with a well-defined boundary, internal echoes, and posterior acoustic enhancement. Color flow imaging demonstrates that there is no vascularity present. There also is a benign 0.5 cm x 0.2 cm x 0.4 cm oval cyst in the right breast at 7 o'clock anterior depth 3 cm from the nipple. This oval cyst is anechoic with a well-defined boundary, internal echoes, and posterior acoustic enhancement. This likely correlates with mammography findings. Color flow imaging demonstrates that there is no vascularity present. IMPRESSION: PROBABLY BENIGN The 0.3 cm x 0.2 cm x 0.2 cm round cyst in the right breast at 6 o'clock in the retroareolar region is consistent with a complicated cyst and is probably benign. A follow-up ultrasound in 6 months is recommended. The 0.5 cm x 0.2 cm x 0.4 cm oval cyst in the right breast at 7 o'clock anterior depth is benign. A follow-up ultrasound in 6 months is recommended to demonstrate stability. This exam was interpreted at Station ID: [id number]. Electronically Signed By: Marc Ryan M.D. ddfina/:11/18/2021 10:44:28 letter sent: Followup Recommended Ultrasound BI-RADS: 3 Probably benign
--- NOTE | 2021-11-18 08:39 | DI.MG.S_ITS ---
UNILATERAL RIGHT DIGITAL DIAGNOSTIC MAMMOGRAM 3D/2D WITH ADDITIONAL VIEWS: 11/18/2021 CLINICAL: Additional evaluation requested from prior study. Comparison is made to exams dated: 10/13/2021 mammogram - [facility], 10/18/2007 mammogram - [facility], and 10/18/2007 [facility]. The tissue of right breast is heterogeneously dense. This may lower the sensitivity of mammography. There is an oval equal density asymmetry with an obscured, indistinct, and circumscribed margin in the right breast middle depth inferior region seen on the mediolateral oblique view only. No other significant masses or calcifications are seen in the breast. IMPRESSION: INCOMPLETE: NEEDS ADDITIONAL IMAGING EVALUATION The oval equal density asymmetry in the right breast is indeterminate. Mediolateral and spot compression views as well as additional views with possible ultrasound are recommended. Ultrasound will be performed immediately following the current exam. This exam was interpreted at Station ID: [id number]. NOTE: For mammograms, a report in lay terms will be sent to the patient. Approximately 15% of breast malignancies will not be visualized mammographically. In the management of a palpable breast mass, a negative mammogram must not discourage biopsy of a clinically suspicious lesion. Electronically Signed By: Marc Ryan M.D. ddp/:11/18/2021 09:13:54 ACR BI-RADS Category 0: Incomplete [id number]
== END ==
PROVIDERS: PCP Registered Nurse; Referring Provider Registered Nurse; Visit Provider Registered Nurse
DX: R92.8 Other abnormal and inconclusive findings on diagnostic imaging of breast (principal); N60.01 Solitary cyst of right breast
CPT/HCPCS: 76642; 77065; G0279

== ENCOUNTER → 2022-05-18 13:34 | Outpatient (CLI) | payer OTHER, MEDICAID, SELFPAY ==
[2021-10-26 18:15] VITALS: BMI 21.9
--- NOTE | 2022-05-18 13:35 | DI.US.S_ITS ---
LIMITED ULTRASOUND OF RIGHT BREAST: 05/18/2022 CLINICAL: 6 month follow-up of cysts. Comparison is made to exams dated: 11/18/2021 ultrasound, 11/18/2021 mammogram, and 10/13/2021 mammogram - [facility]. Color flow and real-time ultrasound of the right breast 6-7 o'clock, and retroareolar regions were performed. Jain scale images of the real-time examination were reviewed. There is a stable 0.3 cm x 0.2 cm x 0.2 cm round complicated cyst in the right breast at 6 o'clock in the retroareolar region. This round complicated cyst is hypoechoic. Color flow imaging demonstrates that there is no vascularity present. There also is a stable benign 0.5 cm x 0.4 cm x 0.2 cm simple cyst in the right breast at 7 o'clock anterior depth 3 cm from the nipple. This simple cyst is anechoic. Color flow imaging demonstrates that there is no vascularity present. IMPRESSION: PROBABLY BENIGN Stable 0.3 cm complicated cyst in the right breast at 6 o'clock in the retroareolar region is probably benign. Stable 0.5 cm simple cyst in the right breast at 7 o'clock anterior depth is benign. A follow-up right breast ultrasound in 6 months is recommended to demonstrate stability. Patient will be due for bilateral mammogram at that time. Exam findings were conveyed to the patient. This exam was interpreted at Station ID: [id number]. Electronically Signed By: Saran Sheridan M.D. slc/:05/18/2022 14:09:19 letter sent: Followup Recommended Ultrasound BI-RADS: 3 Probably benign
== END ==
PROVIDERS: PCP Internal Medicine; Referring Provider Internal Medicine; Visit Provider Internal Medicine
DX: R92.8 Other abnormal and inconclusive findings on diagnostic imaging of breast (principal); N60.01 Solitary cyst of right breast
CPT/HCPCS: 76642

== ENCOUNTER → 2022-09-29 14:36 | Outpatient (CLI) | payer OTHER, MEDICAID, SELFPAY ==
[2021-10-26 18:15] VITALS: BMI 21.9
[2022-09-29 14:51] LABS: Hematocrit 41.2 % (36-46); Hemoglobin 13.4 g/dL (12.0-16.0); Mean Corpuscular HGB Conc 32.5 % (30-36); Mean Corpuscular Hemoglobin 30.1 PG (26-34); Mean Corpuscular Volume 92.8 fL (80-100); Platelet Count 228 X10^3/uL (150-400); Red Blood Cell Count 4.44 X10^6/uL (4.0-5.2); Red Cell Distribution Width 14.7 % (11.6-14.8); White Blood Cell Count 5.8 X10^3/uL (4.5-11.0)
[2022-09-29 15:06] LABS: Alanine Aminotransferase 31 IU/L (<35); Albumin 4.5 g/dL (3.5-5.0); Albumin Globulin Ratio 1.2 (1.0-2.8); Alkaline Phosphatase 109 U/L (38-126); Aspartate Aminotransferase 33 IU/L (14-36); BUN Creatinine Ratio 12.8 (6-22); Bilirubin Total 0.3 mg/dL (0.2-1.3); Blood Urea Nitrogen 10 mg/dL (7-17); Calcium 9.3 mg/dL (8.4-10.2); Carbon Dioxide 35 mmol/L (22-32); Chloride 99 mmol/L (98-107); Cholesterol 250 mg/dL (140-199); Estimated Glomerular Filt Rate > 60 mL/min (>60); Globulin 3.8 g/dL (1.7-4.1); Glucose 104 mg/dL (80-110); Potassium 4.3 mmol/L (3.4-5.1); Sodium 140 mmol/L (137-145); Total Protein 8.3 g/dL (6.3-8.2); Triglycerides 45 mg/dL (35-150)
[2022-09-29 15:13] LABS: HEMOLYSIS < 15 (0-50)
[2022-09-29 15:14] LABS: LDL Cholesterol Calculated 114 mg/dL (<100)
[2022-09-29 15:15] LABS: HDL Cholesterol 127 mg/dL (40-60)
[2022-09-29 15:36] LABS: TSH w/ Reflex to FT4 1.83 uIU/mL (0.47-4.68)
== END ==
PROVIDERS: PCP Internal Medicine; Referring Provider Internal Medicine; Visit Provider Internal Medicine
DX: E78.2 Mixed hyperlipidemia (principal); G35 Multiple sclerosis
CPT/HCPCS: 36415; 80053; 80061; 84443; 85027

== ENCOUNTER → 2022-10-10 12:51 | Outpatient (CLI) | payer OTHER, MEDICAID, SELFPAY ==
[2021-10-26 18:15] VITALS: BMI 21.9
--- NOTE | 2022-10-10 12:52 | DI.RAD.S_ITS ---
PROCEDURE: XR DEXA AXIAL SKELETON INDICATIONS: postmenopausal COMPARISON: None. FINDINGS: This blank DEXA report has been sent in error by the PACS system. The correct and complete report will be forthcoming in 1-2 days. Thank you for your patience and understanding. Dictated by: Cayla Payan MD, PhD on 10/11/2022 at 13:19 Approved by: Cayla Payan MD, PhD on 10/11/2022 at 13:20
== END ==
PROVIDERS: PCP Internal Medicine; Referring Provider Internal Medicine; Visit Provider Internal Medicine
DX: Z78.0 Asymptomatic menopausal state (principal); Z13.820 Encounter for screening for osteoporosis; M81.0 Age-related osteoporosis without current pathological fracture
CPT/HCPCS: 77080

== ENCOUNTER → 2022-11-08 08:46 | Outpatient (CLI) | payer OTHER, MEDICAID, SELFPAY ==
[2021-10-26 18:15] VITALS: BMI 21.9
--- NOTE | 2022-11-08 08:48 | DI.US.S_ITS ---
LIMITED ULTRASOUND OF RIGHT BREAST: 11/08/2022 CLINICAL: 6 month follow-up of cysts. Comparison is made to exams dated: 11/08/2022 mammogram, 05/18/2022 ultrasound, 11/18/2021 ultrasound, 11/18/2021 mammogram, and 10/13/2021 mammogram - [facility]. Color flow ultrasound of the right breast 6-7 o'clock region was performed. Jain scale images of the real-time examination were reviewed. There is a 0.6 cm x 0.6 cm x 0.3 cm oval cyst with a smooth internal wall in the right breast at 7 o'clock anterior depth 3 cm from the nipple. This oval cyst is hypoechoic. This abnormality is not significantly changed. The round complicated cyst in the right breast at 6 o'clock in the retroareolar region is no longer seen. IMPRESSION: PROBABLY BENIGN The 0.6 cm x 0.6 cm x 0.3 cm oval cyst in the right breast at 7 o'clock anterior depth is consistent with a complicated cyst and is probably benign. A follow-up right ultrasound in 6 months is recommended to demonstrate stability. This exam was interpreted at Station ID: [id number]. Electronically Signed By: Jake jarrett/telma:11/08/2022 10:12:34 letter sent: Followup Recommended Ultrasound BI-RADS: 3 Probably benign
--- NOTE | 2022-11-08 08:48 | DI.MG.S_ITS ---
BILATERAL DIGITAL DIAGNOSTIC MAMMOGRAM 3D/2D: 11/08/2022 CLINICAL: 1 year follow up. Comparison is made to exams dated: 11/18/2021 mammogram, 10/13/2021 mammogram, 05/18/2022 ultrasound, and 11/18/2021 ultrasound - [facility]. Both breasts are heterogeneously dense, which may obscure small masses (category c / 51-75% glandular tissue). There is an oval asymmetry with an obscured margin in the right breast middle depth inferior region seen on the mediolateral oblique view only. This is less prominent. No other significant masses, calcifications, or other findings are seen in either breast. IMPRESSION: INCOMPLETE: NEEDS ADDITIONAL IMAGING EVALUATION The oval asymmetry in the right breast is indeterminate. An ultrasound is recommended. Based on the Tyrer Cuzick model (a risk assessment model) the patient's lifetime risk is 7.7% and her 10 year risk is 3.3%. According to the ACR, ACS, and NCCN guidelines, an annual breast MRI exam along with mammogram is recommended if the patient's lifetime risk is 20% or greater. This exam was interpreted at Station ID: [id number]. NOTE: For mammograms, a report in lay terms will be sent to the patient. Approximately 15% of breast malignancies will not be visualized mammographically. In the management of a palpable breast mass, a negative mammogram must not discourage biopsy of a clinically suspicious lesion. Electronically Signed By: Jake jarrett/telma:11/08/2022 10:10:37 ACR BI-RADS Category 0: Incomplete [id number]
== END ==
PROVIDERS: PCP Internal Medicine; Referring Provider Internal Medicine; Visit Provider Internal Medicine
DX: R92.8 Other abnormal and inconclusive findings on diagnostic imaging of breast (principal); N60.01 Solitary cyst of right breast
CPT/HCPCS: 76642; 77066; G0279

== ENCOUNTER 2022-11-25 17:40 | Emergency (ER) | payer OTHER, MEDICAID, SELFPAY ==
[2021-10-26 18:15] VITALS: BMI 21.9
[2022-11-25] VITALS (7 sets, daily range): BP systolic 114–183; BP diastolic 76–92; PULSE 65–83; RESP 14–34; TEMP 36.3–36.8; O2SAT 97–100; BMI 21.9
--- NOTE | 2022-11-25 17:51 | DI.RAD.S_ITS ---
PROCEDURE: XR CHEST 1V INDICATIONS: chest pain TECHNIQUE: One view of the chest was acquired. COMPARISON: [facility], MR, MR THORACIC SPINE WITH/WITHOUT CONTRAST, 04/15/2022, 10:59. [facility], CR, XR CHEST 2V, 07/23/2020, 14:09. [facility], CR, XR CHEST 1V, 10/26/2021, 12:26. FINDINGS: Surgical changes and devices: None. Lungs and pleura: Lungs are clear, yet hyperexpanded. No pleural effusions or pneumothorax. Mediastinum: Mediastinal contours appear normal. Heart size is normal. Bones and chest wall: No suspicious bony lesions. Overlying soft tissues appear unremarkable. IMPRESSION: Hyperexpanded lungs, without an acute cardiopulmonary process identified. Dictated by: Flako Parada M.D. on 11/25/2022 at 17:54 Approved by: Flako Parada M.D. on 11/25/2022 at 17:55
[2022-11-25 18:05] LABS: Add Manual Diff / Slide Review NO; Basophils Absolute Auto 100 /uL (0-100); Basophils Percent Auto 1.1 % (0-2); Eosinophils Absolute Auto 0 /uL (0-450); Eosinophils Percent Auto 0.7 % (2-4); Hematocrit 39.8 % (36-46); Hemoglobin 13.4 g/dL (12.0-16.0); Lymphocytes Absolute Auto 1700 /uL (1100-4500); Lymphocytes Percent Auto 30.4 % (25-40); Mean Corpuscular HGB Conc 33.6 % (30-36); Mean Corpuscular Volume 92.2 fL (80-100); Monocytes Absolute Auto 400 /uL (0-900); Monocytes Percent Auto 7.1 % (3-14); Neutrophils Absolute Auto 3400 /uL (1500-7000); Neutrophils Percent Auto 60.7 % (50-75); Platelet Count 206 X10^3/uL (150-400); Red Blood Cell Count 4.32 X10^6/uL (4.0-5.2); Red Cell Distribution Width 13.9 % (11.6-14.8); White Blood Cell Count 5.7 X10^3/uL (4.5-11.0)
[2022-11-25 18:12] LABS: INR 1.1 (0.9-1.3); Prothrombin Time 12.7 SECONDS (10.1-12.7)
[2022-11-25 18:14] LABS: PTT Partial Thromboplastin Tim 34 SECONDS (26-36)
[2022-11-25 18:16] LABS: Alanine Aminotransferase 25 IU/L (<35); Albumin 4.2 g/dL (3.5-5.0); Albumin Globulin Ratio 1.2 (1.0-2.8); Alkaline Phosphatase 102 U/L (38-126); Aspartate Aminotransferase 30 IU/L (14-36); BUN Creatinine Ratio 17.7 (6-22); Bilirubin Total 0.3 mg/dL (0.2-1.3); Blood Urea Nitrogen 14 mg/dL (7-17); Calcium 8.9 mg/dL (8.4-10.2); Carbon Dioxide 32 mmol/L (22-32); Chloride 99 mmol/L (98-107); Creatine Kinase 74 U/L (30-135); Estimated Glomerular Filt Rate > 60 mL/min (>60); Globulin 3.6 g/dL (1.7-4.1); Glucose 183 mg/dL (80-110); HEMOLYSIS < 15 (0-50); Lipase 87 U/L (23-300); Magnesium 2.2 mg/dL (1.6-2.3); Potassium 3.7 mmol/L (3.4-5.1); Sodium 137 mmol/L (137-145); Total Protein 7.8 g/dL (6.3-8.2)
[2022-11-25 18:27] LABS: Troponin I < 0.012 ng/mL (0.01-0.034)
[2022-11-25 20:26] LABS: Creatine Kinase 77 U/L (30-135)
--- NOTE | 2022-11-25 20:28 | ED.GENADULT ---
HPI - General Adult General Chief complaint: Weakness Stated complaint: Chest pain, Nausea ystday, feeling better today. Time Seen by Provider: 11/25/22 19:24 Source: patient Mode of arrival: Ambulatory Limitations: no limitations History of Present Illness HPI narrative: Patient is a 62-year-old female. She does have history of MS. Yesterday she described bilateral chest discomfort. Described it as a ring around her chest. It lasted approximately 30 minutes and then resolved. She thinks that it radiated up to the right side of her neck. She currently is asymptomatic. No chest pain. Has never had anything like this in the past. No nausea vomiting. No abdominal pain. She contacted her primary care doctor's office who advised that she come to the emergency department today for evaluation despite being symptom-free. Related Data Home Medications Medication Instructions Recorded Confirmed cholecalciferol (vitamin D3) 50 50 mcg PO DAILY 07/23/20 11/22/22 mcg (2,000 unit) capsule magnesium oxide 500 mg tablet 500 mg PO DAILY 07/23/20 11/22/22 melatonin 10 mg capsule 10 mg PO BEDTIME PRN Sleep 07/23/20 11/22/22 CBD as needed for sleep and PO 09/27/21 11/22/22 spasticity alpha lipoic acid 1 tab PO DAILY 09/27/21 11/22/22 baclofen 10 mg tablet 20 mg PO QID 04/25/22 11/22/22 epinephrine 0.3 mg/0.3 mL 0.3 mg IM ONCE PRN 04/25/22 11/22/22 injection, auto-injector gabapentin 100 mg capsule 100 mg PO .COMPLEX 04/25/22 11/22/22 Previous Rx's Medication Instructions Recorded azelastine 137 mcg (0.1 %) nasal 1 spray intranasal BID allergic 11/25/21 spray aerosol rhinitis #30 mL famotidine 20 mg tablet 20 mg PO BID #180 tabs 04/25/22 Allergies Allergy/AdvReac Type Severity Reaction Status Date / Time COVID-19 (SARS-CoV-2) AdvReac Mild tingling/na Verified 11/25/22 17:46 vaccine, zainab usea/rash Review of Systems Constitutional Constitutional: Reports system reviewed and no additional complaints, except as documented ENT Ears, Nose, Mouth, and Throat: Reports system reviewed and no additional complaints, except as documented Cardiovascular Cardiovascular: Reports system reviewed and no additional complaints, except as documented Respiratory Respiratory: Reports system reviewed and no additional complaints, except as documented Gastrointestinal Gastrointestinal: Reports system reviewed and no additional complaints, except as documented Integumentary/Breasts Skin/Breast: Reports system reviewed and no additional complaints, except as documented Neurologic Neurologic: Reports system reviewed and no additional complaints, except as documented Patient History Medical History Allergic reaction Bruises easily Chronic low back pain Cyst of right breast Dizziness Dyspnea Encounter for general adult medical examination without abnormal findings Generalized headaches (Unknown) GERD with esophagitis History of appendicitis (~1979) Insomnia LGSIL (low grade squamous intraepithelial dysplasia) Mild cognitive impairment Multiple sclerosis Sleep disorder Sleep disturbance Surgical History Hx of appendectomy (~1979) Family History Grandfather Diabetes mellitus Family/Other Diabetes mellitus Social History household members: significant other Smoking Status: Former smoker alcohol intake: never Smoking Status: Former smoker alcohol intake frequency: holidays/special occasions only Substance Use Type: does not use Exam Initial Vital Signs Initial Vital Signs: Vital Signs Temperature 98.3 F 11/25/22 17:46 Pulse Rate 83 11/25/22 17:46 Respiratory Rate 16 11/25/22 17:46 Blood Pressure 183/92 H 11/25/22 17:46 Pulse Oximetry 100 11/25/22 17:46 Oxygen Delivery Method 11/25/22 17:46 [facility] Head: normal to inspection and normocephalic Resp Effort & Inspection: normal respiratory effort Auscultation: clear to auscultation bilaterally Cardio Rate: regular rate Rhythm: regular rhythm GI Inspection: normal to inspection Skin General: no rashes or lesions noted Neuro General: patient alert, patient awake, patient oriented x3 and moves all extremities Extrem General: normal to inspection and capillary refill normal Psych Appearance: grossly normal and well kempt Scores GCS [place] coma scale eye opening: Spontaneous [place] coma scale verbal response: Orientated [place] coma scale motor response: Obey commands [place] coma scale total score: 15 HEART Score Heart Score history: Slightly Suspicious Heart Score EKG: Normal Heart Score Age: 45-64 years old Heart Score risk factors: 1-2 risk factors Heart Score troponin: < or = to normal limit Heart Score Total: 2 Course Orders Ordered: ED Orders 11/25/22 17:51 XR chest 1V Stat 11/25/22 17:57 Complete Blood Count AUTO DIFF Stat Comprehensive Metabolic Panel Stat Lipase Stat Magnesium Stat Partial Thromboplastin Time Stat Prothrombin Time INR Stat Troponin & CK Cardiac Panel Stat EKG-12 Lead Stat 11/25/22 20:05 Troponin & CK Cardiac Panel Stat Discontinued Medications Aspirin (Aspirin 81 Mg Chew Tab) 324 mg PO NOW ONE Stop: 11/25/22 17:52 Vital Signs Vital signs: Vital Signs - 8 hr 11/25/22 17:46 11/25/22 21:24 11/25/22 20:22 Temperature 98.3 F 97.4 F L Pulse Rate 83 68 74 Respiratory Rate 16 16 Blood Pressure 183/92 H 114/80 Pulse Oximetry 100 98 98 Oxygen Delivery Method Room Air Room Air 11/25/22 20:24 11/25/22 20:24 11/25/22 20:30 Temperature Pulse Rate 69 Respiratory Rate 14 Blood Pressure 158/92 H 128/76 Pulse Oximetry 99 Oxygen Delivery Method 11/25/22 20:30 11/25/22 21:00 11/25/22 21:00 Temperature Pulse Rate 68 65 Respiratory Rate 24 17 Blood Pressure 118/80 Pulse Oximetry 98 98 Oxygen Delivery Method 11/25/22 21:18 11/25/22 21:18 Temperature Pulse Rate 75 Respiratory Rate 34 H Blood Pressure 114/80 Pulse Oximetry 97 Oxygen Delivery Method Medical Decision Making Differential Diagnosis Differential Diagnosis: ACS, PE, pneumothorax, unstable angina, MS, anxiety and others Condition is:: Resolved Condition is at treatment goal?: Yes Lab Data Lab results reviewed: Yes I reviewed the patient's lab results. 11/25/22 17:57 11/25/22 17:57 Labs: Lab Results 11/25/22 11/25/22 11/25/22 Range/Units 17:57 17:57 17:57 WBC 5.7 (4.5-11.0) X10^3/uL RBC 4.32 (4.0-5.2) X10^6/uL Hgb 13.4 (12.0-16.0) g/dL Hct 39.8 (36-46) % MCV 92.2 (80-100) fL MCH 31.0 (26-34) PG MCHC 33.6 (30-36) % RDW 13.9 (11.6-14.8) % Plt Count 206 (150-400) X10^3/uL Neut % (Auto) 60.7 (50-75) % Lymph % (Auto) 30.4 (25-40) % [place] % (Auto) 7.1 (3-14) % Eos % (Auto) 0.7 L (2-4) % Baso % (Auto) 1.1 (0-2) % Neut # (Auto) 3400 (6518-0606) /uL Lymph # (Auto) 1700 (0132-3920) /uL [place] # (Auto) 400 (0-900) /uL Eos # (Auto) 0 (0-450) /uL Baso # (Auto) 100 (0-100) /uL PT 12.7 (10.1-12.7) SECONDS INR 1.1 (0.9-1.3) APTT 34 (26-36) SECONDS Sodium 137 (137-145) mmol/L Potassium 3.7 (3.4-5.1) mmol/L Chloride 99 (98-107) mmol/L Carbon Dioxide 32 (22-32) mmol/L BUN 14 (7-17) mg/dL Creatinine 0.79 (0.52-1.04) mg/dL Estimated GFR > 60 (>60) mL/min BUN/Creatinine Ratio 17.7 (6-22) Glucose 183 H (80-110) mg/dL Calcium 8.9 (8.4-10.2) mg/dL Magnesium 2.2 (1.6-2.3) mg/dL Total Bilirubin 0.3 (0.2-1.3) mg/dL AST 30 (14-36) IU/L ALT 25 (<35) IU/L Alkaline Phosphatase 102 (38-126) U/L Total Creatine Kinase 74 (30-135) U/L CK-MB (CK-2) TNP CK-MB (CK-2) Rel Index TNP Troponin I < 0.012 (0.01-0.034) ng/mL Total Protein 7.8 (6.3-8.2) g/dL Albumin 4.2 (3.5-5.0) g/dL Globulin 3.6 (1.7-4.1) g/dL Albumin/Globulin Ratio 1.2 (1.0-2.8) Lipase 87 (23-300) U/L 11/25/22 Range/Units 20:05 WBC (4.5-11.0) X10^3/uL RBC (4.0-5.2) X10^6/uL Hgb (12.0-16.0) g/dL Hct (36-46) % MCV (80-100) fL MCH (26-34) PG MCHC (30-36) % RDW (11.6-14.8) % Plt Count (150-400) X10^3/uL Neut % (Auto) (50-75) % Lymph % (Auto) (25-40) % [place] % (Auto) (3-14) % Eos % (Auto) (2-4) % Baso % (Auto) (0-2) % Neut # (Auto) (3827-1648) /uL Lymph # (Auto) (0312-1210) /uL [place] # (Auto) (0-900) /uL Eos # (Auto) (0-450) /uL Baso # (Auto) (0-100) /uL PT (10.1-12.7) SECONDS INR (0.9-1.3) APTT (26-36) SECONDS Sodium (137-145) mmol/L Potassium (3.4-5.1) mmol/L Chloride (98-107) mmol/L Carbon Dioxide (22-32) mmol/L BUN (7-17) mg/dL Creatinine (0.52-1.04) mg/dL Estimated GFR (>60) mL/min BUN/Creatinine Ratio (6-22) Glucose (80-110) mg/dL Calcium (8.4-10.2) mg/dL Magnesium (1.6-2.3) mg/dL Total Bilirubin (0.2-1.3) mg/dL AST (14-36) IU/L ALT (<35) IU/L Alkaline Phosphatase (38-126) U/L Total Creatine Kinase 77 (30-135) U/L CK-MB (CK-2) TNP CK-MB (CK-2) Rel Index TNP Troponin I < 0.012 (0.01-0.034) ng/mL Total Protein (6.3-8.2) g/dL Albumin (3.5-5.0) g/dL Globulin (1.7-4.1) g/dL Albumin/Globulin Ratio (1.0-2.8) Lipase (23-300) U/L Urine Dip Bedside Urine Glucose Negative Bedside Urine Bilirubin - Negative Bedside Urine Ketone - Negative Urine Specific [place] 1.010 Bedside Urine Occult Blood - Negative Bedside Urine pH 6.0 Bedside Urine Protein - Negative Bedside Urine Urobilinogen - Negative Bedside Urine Nitrite - Negative Bedside Urine Leukocytes - Negative Esterase Point of care testing: Urine Dip Bedside Urine Glucose Negative Bedside Urine Bilirubin - Negative Bedside Urine Ketone - Negative Urine Specific [place] 1.010 Bedside Urine Occult Blood - Negative Bedside Urine pH 6.0 Bedside Urine Protein - Negative Bedside Urine Urobilinogen - Negative Bedside Urine Nitrite - Negative Bedside Urine Leukocytes - Negative Esterase Imaging Data Chest x-ray: Radiologist's Impression: [address] [address] XRay Report Signed Patient: Lizzette Paez MR#: [id number] : 1960 Acct:[id number] Age/Sex: 62 / F Date of Service: 11/25/22 Loc: ED Accession Number: [id number] ?? Procedure: XR chest 1V Ordering Provider: Maria Guadalupe Pillai D.O. PROCEDURE:? XR CHEST 1V ? INDICATIONS:? chest pain ? TECHNIQUE:? One view of the chest was acquired.? ? COMPARISON:? [facility], MR, MR THORACIC SPINE WITH/WITHOUT CONTRAST, 04/15/2022, 10:59.? [facility], CR, XR CHEST 2V, 07/23/2020, 14:09.? [facility], CR, XR CHEST 1V, 10/26/2021, 12:26. ? FINDINGS:? ? Surgical changes and devices:? None.? ? Lungs and pleura:? Lungs are clear, yet hyperexpanded.? No pleural effusions or pneumothorax.? ? Mediastinum:? Mediastinal contours appear normal.? Heart size is normal.? ? Bones and chest wall:? No suspicious bony lesions.? Overlying soft tissues appear unremarkable.? ? IMPRESSION:? ? Hyperexpanded lungs, without an acute cardiopulmonary process identified. ? ? Dictated by: Flako Parada M.D. on 11/25/2022 at 17:54 ? ? Approved by: Flako Parada M.D. on 11/25/2022 at 17:55?? ECG Data Attestation: I personally reviewed and interpreted this ECG as follows: Interpretation: Sinus rhythm Ventricular rate 80 Normal axis Normal QRS Normal QTC No ST T wave changes MDM Narrative Medical decision making narrative: Patient is a low risk heart score. Her workup here in the emergency department is unremarkable. Has had 2- troponins. Is currently asymptomatic. We did discuss the lack of a definitive diagnosis of her symptoms. She is no other neurologic symptoms that would make me think that this is an MS flare although she was advised that she should talk with her neurologist especially if her symptoms return. She was given specific return precautions and follow-up instructions. She expressed understanding and agreement. Discharge Plan Departure Patient Disposition: Home Clinical Impression: Atypical chest pain Instructions: DI for Atypical Chest Pain Activity Restrictions/Additional Instructions: I recommend that you continue to take all of your medications as directed. Contact your primary doctor and also your neurologist for a follow-up. Return to the emergency department for any new symptoms. Prescriptions: No Action azelastine 137 mcg (0.1 %) aerosol,spray 1 spray intranasal BID Qty: 30 3RF Rx Instructions: administer into each nostril cholecalciferol (vitamin D3) 50 mcg (2,000 unit) capsule 50 mcg PO DAILY melatonin 10 mg capsule 10 mg PO BEDTIME PRN (Reason: Sleep) magnesium oxide 500 mg tablet 500 mg PO DAILY alpha lipoic acid 600 mg 1 tab PO DAILY CBD as needed for sleep and spasticity PO gabapentin 100 mg capsule 100 mg PO .COMPLEX Rx Instructions: 100 mg orally 1 cap at noon, 2 caps at bedtime; baclofen 10 mg tablet 20 mg PO QID epinephrine 0.3 mg/0.3 mL auto-injector 0.3 mg IM ONCE PRN famotidine 20 mg tablet 20 mg PO BID Qty: 180 3RF Referrals: Dalton Ugarte MD [Primary Care Provider] - Stand Alone Forms: Patient Portal/API
[2022-11-25 20:39] LABS: Troponin I < 0.012 ng/mL (0.01-0.034)
== END 2022-11-25 21:25 | disposition home or self-care (01) ==
PROVIDERS: Emergency Medicine; Emergency Provider Emergency Medicine; PCP Internal Medicine
DX: R07.89 Other chest pain (principal)
CPT/HCPCS: 36415; 71045; 80053; 81003; 82550; 83690; 83735; 84484; 85025; 85610; 85730; 93005; 99283; 99284

== ENCOUNTER 2023-01-05 08:33 | Day surgery (SDC) | payer OTHER, MEDICAID, SELFPAY ==
[2021-10-26 18:15] VITALS: BMI 21.9
[2023-01-03 08:42] VITALS: BMI 22.1
--- NOTE | 2023-01-05 | PATH_ITS ---
[facility] Accession Number: [id number] No. of containers..01 Tissue . 01 Material submitted: . cervix - LEEP CERVICAL CONE BIOPSY . 01 Diagnosis: A. Uterine Cervix, LEEP Excision: Fagments of transformation zone mucosa with focal high-grade squamous intraepithelial lesion (focal HSIL, NIC-2/moderate dysplasia) in a background of atrophy. HSIL focally involves an inked/cauterized tissue edge; see comment. HSIL is free from inked/cauterized deep tissue edges. Negative for glandular dysplasia and invasive malignancy. . . COMMENT: In block A1, and potentially in block A3, HSIL involves an inked/cauterized tissue edge. These fragments cannot be oriented, hence, the exact involved edge cannot be determined (ectocervical vs. endocervical). Given the fragmented nature of the received specimen, clinical correlation is necessary to determine whether these involved edges represent true margins. [facility] 01/10/2023 1844 Local . 01 Electronically signed: . Laverne Arrington MD, Pathologist NPI- [id number] . 01 Gross description: . The specimen is received in formalin labeled with the patient's name, , and LEEP cervical cone biopsy, and consists of four unoriented fragments of cervix. The first measures 1.4 x 0.9 x 0.5 cm with pantoja, wrinkled ectocervix. The margin is inked blue. The fragment is serially sectioned. The second fragment measures 0.8 x 0.8 x 0.2 cm with no ectocervix identified. The concave surface is inked black, and the convex surface is inked green. The third fragment measures 0.9 x 0.7 x 0.3 cm with no ectocervix identified. The concave surface is inked black, and the convex surface is inked orange. The fourth fragment measures 0.9 x 0.6 x 0.4 cm with no ectocervix grossly identified. The concave surface is inked black while the convex surface is inked blue. The fragments are serially sectioned and submitted entirely in cassettes A1-A4. ([id number]) /FRR 01/07/2023 1503 Local . 01 Pathologist provided ICD-10: N87.1 . 01 CPT . 355456 Specimen Comment: A courtesy copy of this report has been sent to [phone] Performed at: 01 [facility] [address], [place], [place] [address] MD Marc Bruno MD Phone: [phone]
[2023-01-05 09:02] VITALS: BP 134/83; PULSE 77; RESP 20; TEMP 36.9; O2SAT 100; BMI 22.1
[2023-01-05] MEDS: LACTATED RINGERS 1,000 ML 42 ML IV (09:06)
--- NOTE | 2023-01-05 09:56 | PM.GYNHP.1 ---
History of Present Illness History of Present Illness Reason for admission: other (Cervical dysplasia) Narrative: iLzzette Paez is a 62 year old female 2 para 1 who presents for LEEP cone biopsy of the cervix due to a discrepancy between Pap, ascus favoring high-grade, and colposcopic biopsy with NIC 1 [facility] Medical History (Updated 12/21/22 @ 11:46 by Dalton Ugarte MD) Allergic reaction Bruises easily Chronic low back pain Cyst of right breast Dizziness Dyspnea Generalized headaches (Unknown) GERD with esophagitis History of appendicitis (~1979) Insomnia Laryngospasm LGSIL (low grade squamous intraepithelial dysplasia) Mild cognitive impairment Multiple sclerosis Sleep disorder Sleep disturbance Surgical History Hx of appendectomy (~1979) Family History Grandfather Diabetes mellitus Family/Other Diabetes mellitus Social History household members: significant other Smoking Status: Former smoker alcohol intake: never Meds Home Medications and Allergies Home Medications Medication Instructions Recorded Confirmed Type cholecalciferol (vitamin D3) 50 50 mcg PO DAILY 07/23/20 01/05/23 History mcg (2,000 unit) capsule magnesium oxide 500 mg tablet 500 mg PO DAILY 07/23/20 01/05/23 History melatonin 10 mg capsule 10 mg PO BEDTIME PRN Sleep 07/23/20 01/05/23 History CBD as needed for sleep and PO 09/27/21 12/21/22 History spasticity alpha lipoic acid 1 tab PO DAILY 09/27/21 01/05/23 History baclofen 10 mg tablet 20 mg PO QID 04/25/22 01/05/23 History epinephrine 0.3 mg/0.3 mL 0.3 mg IM ONCE 04/25/22 01/05/23 History injection, auto-injector famotidine 20 mg tablet 20 mg PO BID #180 tabs 04/25/22 01/05/23 Rx gabapentin 100 mg capsule 100 mg PO .COMPLEX 04/25/22 01/05/23 History azelastine 137 mcg (0.1 %) nasal 1 spray intranasal BID allergic 12/21/22 01/05/23 Rx spray aerosol rhinitis #30 mL Allergies Allergy/AdvReac Type Severity Reaction Status Date / Time COVID-19 (SARS-CoV-2) AdvReac Mild tingling/na Verified 01/05/23 08:58 vaccine, zainab usea/rash NSAIDS (Non-Steroidal AdvReac Abdominal Verified 01/05/23 08:58 Anti-Inflamma Pain Exam Vital Signs (past 8 hours): - 01/05/23 09:02 Temperature 98.4 F Pulse Rate 77 Respiratory Rate 20 Blood Pressure 134/83 Pulse Oximetry 100 Oxygen Delivery Method Room Air Oxygen Delivery Method Room Air Narrative Exam Narrative: HEENT: No thyromegaly, no anterior cervical or supraclavicular lymphadenopathy. Lungs:Clear to auscultation bilaterally, no wheezes. Cardiovascular: Regular rate and rhythm, no murmurs, rubs, or gallops. Abdomen: Well-healed scars. No hepatosplenomegaly. No masses palpable. External genitalia: Normal Vagina: Atrophic Cervix: Atrophic Bimanual exam: 5 Week size uterus. Mobile. Assessment & Plan Assessment & Plan narrative: Assessment: 62-year-old 2 para 1 with a discrepancy between Pap showing ASCUS favoring high-grade, and colposcopic biopsy showing NIC 1 Plan: LEEP cone biopsy of the cervix The risks, benefits, and alternatives to the procedure were explained to the patient. The risks including bleeding and infection. She understands these risks and agrees to proceed. A full par Q was held and consent form was signed. Time Spent With Patient Time with patient: less than 30 minutes Critical Care time: I spent a total of [] minutes of critical care time on this patient's care today; this time is exclusive of procedural time.
--- NOTE | 2023-01-05 09:58 | PM.PREOP ---
Pre-operative Note COVID-19 Criteria for continued procedure: Non-surgical alternatives not available or appropriate per current SOC Interval Note History & Physical reviewed/Exam performed by Physician: Yes Changes to H&P: No H&P completed within 30 days and has changed as indicated here:: 01/05/23
--- NOTE | 2023-01-05 10:28 | SUR.OPER ---
Lithotomy on padded OR bed, head on pillow, arms secured on padded arm boards at <90 degrees abduction. Legs secured in padded yellow fins stirrups.
[2023-01-05 10:49] VITALS: BP 106/71; PULSE 67; RESP 14; TEMP 36.1; O2SAT 93
[2023-01-05] MEDS: POTASSIUM IODIDE/IODINE 473 ML SOLUTION TOP (10:52)
[2023-01-05 10:55] VITALS: BP 100/70; PULSE 68; RESP 16; O2SAT 94
[2023-01-05 11:03] VITALS: BP 106/71; PULSE 65; RESP 20; O2SAT 95
--- NOTE | 2023-01-05 11:04 | P.OP_ITS ---
Operative Date/Time/Diagnoses Date of procedure: 01/05/23 Time of procedure: 11:04 Pre-op diagnosis: ASCUS favoring high-grade dysplasia on Pap, colposcopic biopsy was NIC 1 Discrepancy between Pap and biopsy Post-op diagnosis: same Procedure & Clinicians Procedure: Procedures Operation Date: 01/05/23 11:45 Actual Procedure Side Surgeon edna LEEEdna cone bx of cervix Ernestina De Leon MD Indications: ASCUS favoring high-grade dysplasia on Pap NIC 1 on colposcopic biopsy Discrepancy between Pap and biopsy Surgeon: Ernestina De Leon Anesthesia Type: Sedation Operative Notes Findings: Lugol's light surrounding the endocervical os Closure Type: not applicable Specimen(s): other (Cone biopsy of the cervix) Estimated blood loss (mL): 1 Blood products transfused: none Procedure in detail: After informed consent was obtained, the patient was taken to the operating room where she was placed in the dorsal supine position. After adequate sedation was achieved. She was placed in the dorsal lithotomy position, and prepped and draped in the usual sterile fashion. A time-out was performed. A Draper speculum was placed into the vagina. A plastic coated single-tooth tenaculum was placed on the anterior lip of the cervix. The cervix was coated with Lugol's. There were Lugol's light areas surrounding the endocervical canal. Using the small, 1 cm loop, a cone biopsy was performed. One deeper section into the endocervix was taken as well. Hemostasis was achieved. The single- tooth tenaculum was removed from the anterior lip of the cervix. The bivalve speculum was removed from the vagina. Sponge, lap, and instrument counts were correct x2. The patient tolerated the procedure well, and was taken to PACU in stable condition. Complications: none Post-operative Condition: stable Disposition: PACU Plan for aftercare: Home after recovery
== END 2023-01-05 11:28 | disposition home or self-care (01) ==
PROVIDERS: PCP Internal Medicine; Referring Provider Obstetrics & Gynecology; Visit Provider Obstetrics & Gynecology
PROC: 0UBC7ZZ Excision of Cervix, Via Natural or Artificial Opening (ICD-10-PCS; CPT 57522; principal; 2023-01-05 11:45)
DX: N87.1 Moderate cervical dysplasia (principal)
CPT/HCPCS: 57522; J2250; J2704; J3010

== ENCOUNTER 2023-03-14 13:43 | Emergency (ER) | payer OTHER, MEDICAID, SELFPAY ==
[2023-03-13 17:21] VITALS: BMI 21.9
[2023-03-14] VITALS (10 sets, daily range): BP systolic 119–170; BP diastolic 68–81; PULSE 61–77; RESP 16–25; TEMP 36.8; O2SAT 98–100; BMI 21.4
--- NOTE | 2023-03-14 13:53 | DI.RAD.S_ITS ---
PROCEDURE: XR CHEST 1V INDICATIONS: chest pain TECHNIQUE: One view of the chest was acquired. COMPARISON: [facility], CR, XR CHEST 1V, 11/25/2022, 17:58. FINDINGS: Surgical changes and devices: None. Lungs and pleura: Lungs are clear. No pleural effusions or pneumothorax. Lungs hyperinflated suggesting COPD. Mediastinum: Mediastinal contours appear normal. Heart size is normal. Bones and chest wall: No suspicious bony lesions. Overlying soft tissues appear unremarkable. IMPRESSION: No acute cardiopulmonary disease process. Dictated by: Cayla Payan MD, PhD on 03/14/2023 at 14:25 Approved by: Cayla Payan MD, PhD on 03/14/2023 at 14:26
[2023-03-14 14:25] LABS: Add Manual Diff / Slide Review NO; Basophils Absolute Auto 100 /uL (0-100); Basophils Percent Auto 0.9 % (0-2); Eosinophils Absolute Auto 100 /uL (0-450); Eosinophils Percent Auto 2.2 % (2-4); Hematocrit 41.2 % (36-46); Hemoglobin 13.9 g/dL (12.0-16.0); Lymphocytes Absolute Auto 1700 /uL (1100-4500); Lymphocytes Percent Auto 27.7 % (25-40); Mean Corpuscular HGB Conc 33.7 % (30-36); Mean Corpuscular Hemoglobin 31.2 PG (26-34); Mean Corpuscular Volume 92.7 fL (80-100); Monocytes Absolute Auto 400 /uL (0-900); Monocytes Percent Auto 7.2 % (3-14); Neutrophils Absolute Auto 3800 /uL (1500-7000); Platelet Count 229 X10^3/uL (150-400); Red Blood Cell Count 4.44 X10^6/uL (4.0-5.2); Red Cell Distribution Width 14.5 % (11.6-14.8); White Blood Cell Count 6.1 X10^3/uL (4.5-11.0)
[2023-03-14 14:34] LABS: INR 1.1 (0.9-1.3); Prothrombin Time 12.5 SECONDS (10.1-12.7)
[2023-03-14 14:36] LABS: PTT Partial Thromboplastin Tim 36 SECONDS (26-36)
[2023-03-14 14:38] LABS: Alanine Aminotransferase 26 IU/L (<35); Albumin 4.5 g/dL (3.5-5.0); Albumin Globulin Ratio 1.3 (1.0-2.8); Alkaline Phosphatase 102 U/L (38-126); Aspartate Aminotransferase 31 IU/L (14-36); BUN Creatinine Ratio 20.3 (6-22); Bilirubin Total 0.5 mg/dL (0.2-1.3); Blood Urea Nitrogen 16 mg/dL (7-17); Calcium 9.4 mg/dL (8.4-10.2); Carbon Dioxide 30 mmol/L (22-32); Chloride 101 mmol/L (98-107); Creatine Kinase 75 U/L (30-135); Estimated Glomerular Filt Rate > 60 mL/min (>60); Globulin 3.5 g/dL (1.7-4.1); Glucose 88 mg/dL (80-110); HEMOLYSIS < 15 (0-50); Lipase 124 U/L (23-300); Magnesium 2.1 mg/dL (1.6-2.3); Potassium 3.9 mmol/L (3.4-5.1); Sodium 138 mmol/L (137-145)
[2023-03-14 14:50] LABS: Troponin I < 0.012 ng/mL (0.01-0.034)
--- NOTE | 2023-03-14 15:02 | DI.US.S_ITS ---
PROCEDURE: US ABDOMEN LIMITED INDICATIONS: RUQ PAIN TECHNIQUE: Real-time focused scanning was performed of the abdomen, with image documentation. COMPARISON: None. FINDINGS: The liver is normal in size and demonstrates no focal lesions. No findings of gallstones or sludge are seen. The gallbladder wall is not thickened, measuring 3 mm or less. No specific pericholecystic fluid is seen. The sonographic Childers sign is negative. There is no biliary dilatation, the common bile duct measures 6 mm. No significant pancreatic abnormality is seen on these images. IMPRESSION: The gallbladder demonstrates a normal sonographic appearance. No biliary dilatation is seen. Dictated by: Flako Parada M.D. on 03/14/2023 at 15:47 Approved by: Flako Parada M.D. on 03/14/2023 at 15:48
[2023-03-14 17:08] LABS: Troponin I < 0.012 ng/mL (0.01-0.034)
--- NOTE | 2023-03-14 18:15 | ED_ITS ---
HPI - General Adult <Blayne Wiseman PA-C - Last Filed: 03/14/23 18:25> General Chief complaint: Chest Pain Stated complaint: 2 Bout of violent chest pain 1 hour ago Time Seen by Provider: 03/14/23 14:02 Source: patient Mode of arrival: Ambulatory History of Present Illness HPI narrative: 62-year-old female with past medical history multiple sclerosis, GERD, generalized anxiety disorder presents to the ED with 1 day of left-sided chest pain. Patient states that she had some left-sided sharp chest pain twice within a 1/2 hour, after which it spontaneously subsided. Patient states in the ED, she is not experiencing any pain. Patient states that she has had some chest pain that is related to the multiple sclerosis which she described as the MS hug. However patient states that today's chest pain was very different in nature to the prior chest pains. Patient also states that she has had some intermittent right upper quadrant pains over the past several months, for which she is slated to see her PCP tomorrow. Patient states that yesterday she had marked right upper quadrant pain, followed by the chest pain today. Patient denies any other symptoms including fevers, chills, shortness of breath, cough, nausea, vomiting, diarrhea, constipation, lightheadedness, dizziness, syncope. Related Data Home Medications Medication Instructions Recorded Confirmed cholecalciferol (vitamin D3) 50 50 mcg PO DAILY 07/23/20 02/28/23 mcg (2,000 unit) capsule magnesium oxide 500 mg tablet 500 mg PO DAILY 07/23/20 02/28/23 melatonin 10 mg capsule 10 mg PO BEDTIME PRN Sleep 07/23/20 02/28/23 CBD as needed for sleep and PO 09/27/21 02/28/23 spasticity alpha lipoic acid 1 tab PO DAILY 09/27/21 02/28/23 baclofen 10 mg tablet 20 mg PO QID 04/25/22 02/28/23 epinephrine 0.3 mg/0.3 mL 0.3 mg IM ONCE 04/25/22 02/28/23 injection, auto-injector gabapentin 100 mg capsule 100 mg PO .COMPLEX 04/25/22 02/28/23 Previous Rx's Medication Instructions Recorded famotidine 20 mg tablet 20 mg PO BID #180 tabs 04/25/22 azelastine 137 mcg (0.1 %) nasal 1 spray intranasal BID allergic 12/21/22 spray aerosol rhinitis #30 mL Allergies Allergy/AdvReac Type Severity Reaction Status Date / Time COVID-19 (SARS-CoV-2) AdvReac Mild tingling/na Verified 02/28/23 08:35 vaccine, zainab usea/rash NSAIDS (Non-Steroidal AdvReac Abdominal Verified 02/28/23 08:35 Anti-Inflamma Pain Review of Systems <Blayne Wiseman PA-C - Last Filed: 03/14/23 18:25> Review of Systems ROS Unobtainable: All systems reviewed & are unremarkable except as noted in HPI and below Constitutional Constitutional: Denies chills, Denies fatigue, Denies fever(s), Denies frequent falls, Denies lethargy and Denies weakness Eyes Eyes: Denies change in vision, Denies eye discharge, Denies irritation and Denies loss of vision ENT Ears, Nose, Mouth, and Throat: Denies change in voice, Denies dizziness, Denies neck pain, Denies sore throat and Denies throat swelling Cardiovascular Cardiovascular: Reports chest pain, Denies irregular heart rhythm, Denies lightheadedness, Denies palpitations, Denies dyspnea, Denies dyspnea on exertion and Denies orthopnea Respiratory Respiratory: Denies cough, Denies dyspnea, Denies dyspnea on exertion and Denies wheezing Gastrointestinal Gastrointestinal: Reports abdominal pain, Denies change in bowel habits, Denies diarrhea, Denies nausea and Denies vomiting Genitourinary Genitourinary: Denies hematuria, Denies flank pain, Denies urinary incontinence and Denies urinary urgency Musculoskeletal Musculoskeletal: Denies back pain, Denies muscle weakness, Denies neck pain, Denies numbness and Denies tingling Integumentary/Breasts Skin/Breast: Denies pruritus, Denies erythema, Denies rash and Denies wounds Neurologic Neurologic: Denies behavioral changes, Denies confusion, Denies dizziness, Denies frequent falls, Denies loss of vision, Denies numbness, Denies tingling and Denies weakness Psychiatric Psychiatric: Denies anxiety, Denies behavioral changes, Denies confusion, Denies depression, Denies homicidal ideation and Denies suicidal ideation Endocrine Endocrine: Denies fatigue, Denies flushing and Denies palpitations Hematologic/Lymphatic Hematologic/Lymphatic: Denies easy bruising Allergic/Immunologic Allergic/Immunologic: Denies urticaria, Denies throat swelling and Denies wheezing Patient History <Blayne Wiseman PA-C - Last Filed: 03/14/23 18:25> Medical History Allergic reaction Bruises easily Chronic low back pain Cyst of right breast Generalized anxiety disorder Generalized headaches (Unknown) GERD with esophagitis HGSIL (high grade squamous intraepithelial dysplasia) History of appendicitis (~1979) Insomnia Laryngospasm Mild cognitive impairment Multiple sclerosis Surgical History Hx of appendectomy (~1979) Status post LEEP (loop electrosurgical excision procedure) of cervix Family History Grandfather Diabetes mellitus Family/Other Diabetes mellitus Social History household members: significant other Smoking Status: Former smoker alcohol intake: never Smoking Status: Former smoker alcohol intake frequency: holidays/special occasions only Substance Use Type: does not use Exam <Blayne Wiseman PA-C - Last Filed: 03/14/23 18:25> Narrative Exam Narrative: Const General:?cooperative, healthy appearing and comfortable [facility] Head:?normal to inspection Ears:?hearing grossly normal bilaterally Nose:?external nose normal Face and sinus:?normal facial exam and sinuses nontender Mouth:?oral mucosae normal Throat:?posterior oropharynx normal Eyes General:?appearance normal, both eyes and all related structures Neck Neck:?normal visual inspection and no lymphadenopathy noted Resp Effort & Inspection:?normal respiratory effort Auscultation:?clear to auscultation bilaterally Cardio Rate:?regular rate Rhythm:?regular rhythm GI Abdomen is soft, nondistended. There is mild tenderness to palpation of the right upper quadrant. No CVA tenderness. Neuro General:?patient alert, patient awake and patient oriented x3 Initial Vital Signs Initial Vital Signs: Vital Signs Temperature 98.2 F 03/14/23 13:46 Pulse Rate 72 03/14/23 13:46 Respiratory Rate 18 03/14/23 13:46 Blood Pressure 170/78 H 03/14/23 13:46 Pulse Oximetry 99 03/14/23 13:46 Oxygen Delivery Method Room Air 03/14/23 13:46 <Constantino Bueno DO - Last Filed: 03/14/23 18:35> Initial Vital Signs Initial Vital Signs: Vital Signs Temperature 98.2 F 03/14/23 13:46 Pulse Rate 72 03/14/23 13:46 Respiratory Rate 18 03/14/23 13:46 Blood Pressure 170/78 H 03/14/23 13:46 Pulse Oximetry 99 03/14/23 13:46 Oxygen Delivery Method Room Air 03/14/23 13:46 Course <Blayne Wiseman PA-C - Last Filed: 03/14/23 18:25> Orders Ordered: ED Orders 03/14/23 13:53 XR chest 1V Stat 03/14/23 14:08 Complete Blood Count AUTO DIFF Stat Comprehensive Metabolic Panel Stat Lipase Stat Magnesium Stat PTT Partial Thromboplastin Matthew Stat Prothrombin Time INR Stat Troponin & CK Cardiac Panel Stat 03/14/23 15:02 US abdomen limited Stat 03/14/23 16:06 Trop I [Troponin I] Stat 03/14/23 16:14 EKG-12 Lead Routine Vital Signs Vital signs: Vital Signs - 8 hr 03/14/23 13:46 03/14/23 14:13 03/14/23 14:13 Temperature 98.2 F Pulse Rate 72 70 Respiratory Rate 18 Blood Pressure 170/78 H 141/72 H Pulse Oximetry 99 100 Oxygen Delivery Method Room Air 03/14/23 14:30 03/14/23 15:00 03/14/23 15:29 Temperature Pulse Rate 77 68 Respiratory Rate 25 H 25 H Blood Pressure 126/74 Pulse Oximetry 100 99 Oxygen Delivery Method 03/14/23 15:29 03/14/23 15:30 03/14/23 15:30 Temperature Pulse Rate 65 69 Respiratory Rate 18 20 Blood Pressure 119/68 Pulse Oximetry 100 98 Oxygen Delivery Method 03/14/23 16:00 03/14/23 16:30 03/14/23 16:30 Temperature Pulse Rate 70 67 Respiratory Rate 24 20 Blood Pressure 123/77 Pulse Oximetry 100 100 Oxygen Delivery Method 03/14/23 17:00 03/14/23 17:00 03/14/23 17:30 Temperature Pulse Rate 61 Respiratory Rate 16 Blood Pressure 133/81 120/73 Pulse Oximetry 99 Oxygen Delivery Method 03/14/23 17:30 Temperature Pulse Rate 67 Respiratory Rate 19 Blood Pressure Pulse Oximetry 99 Oxygen Delivery Method <DO Mary Redding Last Filed: 03/14/23 18:35> Orders Ordered: ED Orders 03/14/23 13:53 XR chest 1V Stat 03/14/23 14:08 Complete Blood Count AUTO DIFF Stat Comprehensive Metabolic Panel Stat Lipase Stat Magnesium Stat PTT Partial Thromboplastin Matthew Stat Prothrombin Time INR Stat Troponin & CK Cardiac Panel Stat 03/14/23 15:02 US abdomen limited Stat 03/14/23 16:06 Trop I [Troponin I] Stat 03/14/23 16:14 EKG-12 Lead Routine Vital Signs Vital signs: Vital Signs - 8 hr 03/14/23 13:46 03/14/23 14:13 03/14/23 14:13 Temperature 98.2 F Pulse Rate 72 70 Respiratory Rate 18 Blood Pressure 170/78 H 141/72 H Pulse Oximetry 99 100 Oxygen Delivery Method Room Air 03/14/23 14:30 03/14/23 15:00 03/14/23 15:29 Temperature Pulse Rate 77 68 Respiratory Rate 25 H 25 H Blood Pressure 126/74 Pulse Oximetry 100 99 Oxygen Delivery Method 03/14/23 15:29 03/14/23 15:30 03/14/23 15:30 Temperature Pulse Rate 65 69 Respiratory Rate 18 20 Blood Pressure 119/68 Pulse Oximetry 100 98 Oxygen Delivery Method 03/14/23 16:00 03/14/23 16:30 03/14/23 16:30 Temperature Pulse Rate 70 67 Respiratory Rate 24 20 Blood Pressure 123/77 Pulse Oximetry 100 100 Oxygen Delivery Method 03/14/23 17:00 03/14/23 17:00 03/14/23 17:30 Temperature Pulse Rate 61 Respiratory Rate 16 Blood Pressure 133/81 120/73 Pulse Oximetry 99 Oxygen Delivery Method 03/14/23 17:30 Temperature Pulse Rate 67 Respiratory Rate 19 Blood Pressure Pulse Oximetry 99 Oxygen Delivery Method Medical Decision Making <Blayne Wiseman PA-C - Last Filed: 03/14/23 18:25> Lab Data 03/14/23 14:08 03/14/23 14:08 Labs: Lab Results 03/14/23 03/14/23 03/14/23 Range/Units 14:08 14:08 14:08 WBC 6.1 (4.5-11.0) X10^3/uL RBC 4.44 (4.0-5.2) X10^6/uL Hgb 13.9 (12.0-16.0) g/dL Hct 41.2 (36-46) % MCV 92.7 (80-100) fL MCH 31.2 (26-34) PG MCHC 33.7 (30-36) % RDW 14.5 (11.6-14.8) % Plt Count 229 (150-400) X10^3/uL Neut % (Auto) 62.0 (50-75) % Lymph % (Auto) 27.7 (25-40) % [place] % (Auto) 7.2 (3-14) % Eos % (Auto) 2.2 (2-4) % Baso % (Auto) 0.9 (0-2) % Neut # (Auto) 3800 (9223-9076) /uL Lymph # (Auto) 1700 (7054-2637) /uL [place] # (Auto) 400 (0-900) /uL Eos # (Auto) 100 (0-450) /uL Baso # (Auto) 100 (0-100) /uL PT 12.5 (10.1-12.7) SECONDS INR 1.1 (0.9-1.3) APTT 36 (26-36) SECONDS Sodium 138 (137-145) mmol/L Potassium 3.9 (3.4-5.1) mmol/L Chloride 101 (98-107) mmol/L Carbon Dioxide 30 (22-32) mmol/L BUN 16 (7-17) mg/dL Creatinine 0.79 (0.52-1.04) mg/dL Estimated GFR > 60 (>60) mL/min BUN/Creatinine Ratio 20.3 (6-22) Glucose 88 (80-110) mg/dL Calcium 9.4 (8.4-10.2) mg/dL Magnesium 2.1 (1.6-2.3) mg/dL Total Bilirubin 0.5 (0.2-1.3) mg/dL AST 31 (14-36) IU/L ALT 26 (<35) IU/L Alkaline Phosphatase 102 (38-126) U/L Total Creatine Kinase 75 (30-135) U/L CK-MB (CK-2) TNP CK-MB (CK-2) Rel Index TNP Troponin I < 0.012 (0.01-0.034) ng/mL Total Protein 8.0 (6.3-8.2) g/dL Albumin 4.5 (3.5-5.0) g/dL Globulin 3.5 (1.7-4.1) g/dL Albumin/Globulin Ratio 1.3 (1.0-2.8) Lipase 124 (23-300) U/L / Range/Units 16:06 WBC (4.5-11.0) X10^3/uL RBC (4.0-5.2) X10^6/uL Hgb (12.0-16.0) g/dL Hct (36-46) % MCV (80-100) fL MCH (26-34) PG MCHC (30-36) % RDW (11.6-14.8) % Plt Count (150-400) X10^3/uL Neut % (Auto) (50-75) % Lymph % (Auto) (25-40) % [place] % (Auto) (3-14) % Eos % (Auto) (2-4) % Baso % (Auto) (0-2) % Neut # (Auto) (9235-0903) /uL Lymph # (Auto) (2688-5469) /uL [place] # (Auto) (0-900) /uL Eos # (Auto) (0-450) /uL Baso # (Auto) (0-100) /uL PT (10.1-12.7) SECONDS INR (0.9-1.3) APTT (26-36) SECONDS Sodium (137-145) mmol/L Potassium (3.4-5.1) mmol/L Chloride (98-107) mmol/L Carbon Dioxide (22-32) mmol/L BUN (7-17) mg/dL Creatinine (0.52-1.04) mg/dL Estimated GFR (>60) mL/min BUN/Creatinine Ratio (6-22) Glucose (80-110) mg/dL Calcium (8.4-10.2) mg/dL Magnesium (1.6-2.3) mg/dL Total Bilirubin (0.2-1.3) mg/dL AST (14-36) IU/L ALT (<35) IU/L Alkaline Phosphatase (38-126) U/L Total Creatine Kinase (30-135) U/L CK-MB (CK-2) CK-MB (CK-2) Rel Index Troponin I < 0.012 (0.01-0.034) ng/mL Total Protein (6.3-8.2) g/dL Albumin (3.5-5.0) g/dL Globulin (1.7-4.1) g/dL Albumin/Globulin Ratio (1.0-2.8) Lipase (23-300) U/L Urine Dip Bedside Urine Glucose Negative Bedside Urine Bilirubin - Negative Bedside Urine Ketone - Negative Urine Specific Dana 1.005 Bedside Urine Occult Blood - Negative Bedside Urine pH 6.0 Bedside Urine Protein - Negative Bedside Urine Urobilinogen - Negative Bedside Urine Nitrite - Negative Bedside Urine Leukocytes - Negative Esterase Point of care testing: Urine Dip Bedside Urine Glucose Negative Bedside Urine Bilirubin - Negative Bedside Urine Ketone - Negative Urine Specific Dana 1.005 Bedside Urine Occult Blood - Negative Bedside Urine pH 6.0 Bedside Urine Protein - Negative Bedside Urine Urobilinogen - Negative Bedside Urine Nitrite - Negative Bedside Urine Leukocytes - Negative Esterase MDM Narrative Medical decision making narrative: 62-year-old female with past medical history multiple sclerosis, GERD, generalized anxiety disorder presents to the ED with 1 day of left-sided chest pain. Concern for ACS versus pneumonia versus GERD versus gastritis versus gas pains versus other. Will obtain chest x-ray, EKG, labs, troponin, ultrasound right upper quadrant. Workup was largely unremarkable. Ultrasound with no acute findings. EKG x2, troponin x2 without acute findings. Chest x-ray without acute findings. Discussed findings with patient. Patient agrees to monitor her symptoms and return to the ED if she has worsening chest pain, shortness of breath. Patient also has a PCP follow-up scheduled for tomorrow. Medical records reviewed: Yes <Constantino Bueno DO - Last Filed: 03/14/23 18:35> Lab Data Labs: Lab Results 03/14/23 03/14/23 03/14/23 Range/Units 14:08 14:08 14:08 WBC 6.1 (4.5-11.0) X10^3/uL RBC 4.44 (4.0-5.2) X10^6/uL Hgb 13.9 (12.0-16.0) g/dL Hct 41.2 (36-46) % MCV 92.7 (80-100) fL MCH 31.2 (26-34) PG MCHC 33.7 (30-36) % RDW 14.5 (11.6-14.8) % Plt Count 229 (150-400) X10^3/uL Neut % (Auto) 62.0 (50-75) % Lymph % (Auto) 27.7 (25-40) % [place] % (Auto) 7.2 (3-14) % Eos % (Auto) 2.2 (2-4) % Baso % (Auto) 0.9 (0-2) % Neut # (Auto) 3800 (6417-2439) /uL Lymph # (Auto) 1700 (6501-5978) /uL [place] # (Auto) 400 (0-900) /uL Eos # (Auto) 100 (0-450) /uL Baso # (Auto) 100 (0-100) /uL PT 12.5 (10.1-12.7) SECONDS INR 1.1 (0.9-1.3) APTT 36 (26-36) SECONDS Sodium 138 (137-145) mmol/L Potassium 3.9 (3.4-5.1) mmol/L Chloride 101 (98-107) mmol/L Carbon Dioxide 30 (22-32) mmol/L BUN 16 (7-17) mg/dL Creatinine 0.79 (0.52-1.04) mg/dL Estimated GFR > 60 (>60) mL/min BUN/Creatinine Ratio 20.3 (6-22) Glucose 88 (80-110) mg/dL Calcium 9.4 (8.4-10.2) mg/dL Magnesium 2.1 (1.6-2.3) mg/dL Total Bilirubin 0.5 (0.2-1.3) mg/dL AST 31 (14-36) IU/L ALT 26 (<35) IU/L Alkaline Phosphatase 102 (38-126) U/L Total Creatine Kinase 75 (30-135) U/L CK-MB (CK-2) TNP CK-MB (CK-2) Rel Index TNP Troponin I < 0.012 (0.01-0.034) ng/mL Total Protein 8.0 (6.3-8.2) g/dL Albumin 4.5 (3.5-5.0) g/dL Globulin 3.5 (1.7-4.1) g/dL Albumin/Globulin Ratio 1.3 (1.0-2.8) Lipase 124 (23-300) U/L / Range/Units 16:06 WBC (4.5-11.0) X10^3/uL RBC (4.0-5.2) X10^6/uL Hgb (12.0-16.0) g/dL Hct (36-46) % MCV (80-100) fL MCH (26-34) PG MCHC (30-36) % RDW (11.6-14.8) % Plt Count (150-400) X10^3/uL Neut % (Auto) (50-75) % Lymph % (Auto) (25-40) % [place] % (Auto) (3-14) % Eos % (Auto) (2-4) % Baso % (Auto) (0-2) % Neut # (Auto) (1759-2976) /uL Lymph # (Auto) (0550-3280) /uL [place] # (Auto) (0-900) /uL Eos # (Auto) (0-450) /uL Baso # (Auto) (0-100) /uL PT (10.1-12.7) SECONDS INR (0.9-1.3) APTT (26-36) SECONDS Sodium (137-145) mmol/L Potassium (3.4-5.1) mmol/L Chloride (98-107) mmol/L Carbon Dioxide (22-32) mmol/L BUN (7-17) mg/dL Creatinine (0.52-1.04) mg/dL Estimated GFR (>60) mL/min BUN/Creatinine Ratio (6-22) Glucose (80-110) mg/dL Calcium (8.4-10.2) mg/dL Magnesium (1.6-2.3) mg/dL Total Bilirubin (0.2-1.3) mg/dL AST (14-36) IU/L ALT (<35) IU/L Alkaline Phosphatase (38-126) U/L Total Creatine Kinase (30-135) U/L CK-MB (CK-2) CK-MB (CK-2) Rel Index Troponin I < 0.012 (0.01-0.034) ng/mL Total Protein (6.3-8.2) g/dL Albumin (3.5-5.0) g/dL Globulin (1.7-4.1) g/dL Albumin/Globulin Ratio (1.0-2.8) Lipase (23-300) U/L Urine Dip Bedside Urine Glucose Negative Bedside Urine Bilirubin - Negative Bedside Urine Ketone - Negative Urine Specific [place] 1.005 Bedside Urine Occult Blood - Negative Bedside Urine pH 6.0 Bedside Urine Protein - Negative Bedside Urine Urobilinogen - Negative Bedside Urine Nitrite - Negative Bedside Urine Leukocytes - Negative Esterase Point of care testing: Urine Dip Bedside Urine Glucose Negative Bedside Urine Bilirubin - Negative Bedside Urine Ketone - Negative Urine Specific [place] 1.005 Bedside Urine Occult Blood - Negative Bedside Urine pH 6.0 Bedside Urine Protein - Negative Bedside Urine Urobilinogen - Negative Bedside Urine Nitrite - Negative Bedside Urine Leukocytes - Negative Esterase Discharge Plan Departure Patient Disposition: Home Clinical Impression: Atypical chest pain Activity Restrictions/Additional Instructions: You were evaluated in the ED today for chest pain. Your workup was normal with normal EKG, chest x-ray, labs. We also did an ultrasound of your abdomen since you have been experiencing intermittent right-sided pain. The ultrasound was also normal. It is possible that your chest pain was from gas pains or other musculoskeletal issues. However please monitor your symptoms and return to the ED if symptoms worsen, you have trouble breathing. Please follow-up with your doctor tomorrow as you have scheduled. Prescriptions: No Action cholecalciferol (vitamin D3) 50 mcg (2,000 unit) capsule 50 mcg PO DAILY melatonin 10 mg capsule 10 mg PO BEDTIME PRN (Reason: Sleep) magnesium oxide 500 mg tablet 500 mg PO DAILY alpha lipoic acid 600 mg 1 tab PO DAILY CBD as needed for sleep and spasticity PO gabapentin 100 mg capsule 100 mg PO .COMPLEX Rx Instructions: 100 mg orally 1 cap at noon, 2 caps at bedtime; baclofen 10 mg tablet 20 mg PO QID epinephrine 0.3 mg/0.3 mL auto-injector 0.3 mg IM ONCE famotidine 20 mg tablet 20 mg PO BID Qty: 180 3RF azelastine 137 mcg (0.1 %) aerosol,spray 1 spray intranasal BID Qty: 30 12RF Rx Instructions: administer into each nostril Referrals: Dalton Ugarte MD [Primary Care Provider] - Stand Alone Forms: Patient Portal/API <Constantino Bueno, - Last Filed: 03/14/23 18:35> Cosign ED Attending Cosignature Attestation: Dr Bueno Co-Sign Statement: I was available for consultation during this patient's emergency department visit. This chart is signed by myself for administrative purposes only. I did not have direct contact with this patient during this visit. They were seen independently by the APC.
== END 2023-03-14 17:43 | disposition home or self-care (01) ==
PROVIDERS: Emergency Medicine; Emergency Provider Student in an Organized Health Care Education/Training Program; PCP Internal Medicine
DX: R07.89 Other chest pain (principal); R10.11 Right upper quadrant pain
CPT/HCPCS: 36415; 71045; 76705; 80053; 81003; 82550; 83690; 83735; 84484; 85025; 85610; 85730; 93005; 99283; 99284

== ENCOUNTER → 2023-05-17 10:13 | Outpatient (CLI) | payer OTHER, MEDICAID, SELFPAY ==
[2023-03-13 17:21] VITALS: BMI 21.9
--- NOTE | 2023-05-17 10:13 | DI.US.S_ITS ---
ULTRASOUND OF RIGHT BREAST: 05/17/2023 CLINICAL: Follow up right breast cyst. No prior exams were available for comparison. Ultrasound of the right breast was performed on the area of interest. Jain scale images of the real-time examination were reviewed. The hypoechoic mass or cyst in the right breast at 7 o'clock anterior depth 3 cm from the nipple is stable. IMPRESSION: PROBABLY BENIGN Complicated cyst versus fibroadenoma in the right breast at 7 o'clock is stable and probably benign. A follow-up ultrasound in 6 months is recommended to demonstrate stability. This exam was interpreted at Station ID: [id number]. SUMMARY: The patient will be due for her bilateral mammogram at this time. Electronically Signed By: Suzan fontenot/:05/17/2023 11:33:18 letter sent: Followup Recommended Ultrasound BI-RADS: 3 Probably benign
== END ==
PROVIDERS: PCP Internal Medicine; Referring Provider Obstetrics & Gynecology; Visit Provider Obstetrics & Gynecology
DX: N60.01 Solitary cyst of right breast (principal); R92.8 Other abnormal and inconclusive findings on diagnostic imaging of breast
CPT/HCPCS: 76642

== ENCOUNTER → 2023-11-29 14:15 | Outpatient (CLI) | payer MEDICARE, MEDICAID, SELFPAY ==
[2023-03-13 17:21] VITALS: BMI 21.9
--- NOTE | 2023-11-29 14:17 | DI.US.S_ITS ---
ULTRASOUND OF RIGHT BREAST: 11/29/2023 CLINICAL: 6 month follow up ultrasound for right breast abnormality. Comparison is made to exams dated: 05/17/2023 ultrasound, 11/08/2022 ultrasound, and 11/08/[address] [facility]. Color flow and real-time ultrasound of the right breast were performed. Jain scale images of the real-time examination were reviewed. There is a 0.5 cm x 0.4 cm x 0.3 cm oval cyst with a smooth internal wall in the right breast at 8 o'clock anterior depth 3 cm from the nipple. This oval cyst is hypoechoic. This abnormality is not significantly changed. IMPRESSION: INCOMPLETE: NEEDS ADDITIONAL IMAGING EVALUATION The 0.5 cm x 0.4 cm x 0.3 cm oval cyst in the right breast is consistent with a complicated cyst and is probably benign, however, patient is due for bilateral mammograms which could not be performed today. The patient will return as soon as possible for mammographic evaluation. Findings and recommendations were conveyed to the patient during today's evaluation. This exam was interpreted at Station ID: [id number]. Electronically Signed By: Efrain Rodriguez M.D. aty/:11/29/2023 16:59:02 Ultrasound BI-RADS: 0 Indeterminate
== END ==
PROVIDERS: PCP Internal Medicine; Referring Provider Internal Medicine; Visit Provider Internal Medicine
DX: N60.01 Solitary cyst of right breast; R92.8 Other abnormal and inconclusive findings on diagnostic imaging of breast
CPT/HCPCS: 76642

== ENCOUNTER → 2023-12-15 08:48 | Outpatient (CLI) | payer MEDICARE, MEDICAID, SELFPAY ==
[2023-03-13 17:21] VITALS: BMI 21.9
--- NOTE | 2023-12-15 08:49 | DI.MG.S_ITS ---
BILATERAL DIGITAL DIAGNOSTIC MAMMOGRAM 3D/2D: 12/15/2023 CLINICAL: Short term follow up of the right breast, due for bilateral imaging. Comparison is made to exams dated: 11/29/2023 ultrasound, 11/08/2022 mammogram, and 10/13/2021 mammogram - [facility]. Both breasts are heterogeneously dense, which may obscure small masses (category c / 51-75% glandular tissue). There is an oval equal density asymmetry with an obscured, indistinct, and circumscribed margin in the right breast middle depth inferior region seen on the mediolateral oblique view only. This is less prominent. No other significant masses, calcifications, or other findings are seen in either breast. IMPRESSION: BENIGN The oval equal density asymmetry in the right breast has demonstrated two years of stability and is consistent with a benign process. Previous ultrasound findging has also demonstrated two years of stability, recently evaluated on 11/29/2023. Return to screening mammography. Next exam due in one year. Findings and recommendations were conveyed to the patient during today's evaluation. Based on the Tyrer Cuzick model (a risk assessment model) the patient's lifetime risk is 7.5% and her 10 year risk is 3.3%. According to the ACR, ACS, and NCCN guidelines, an annual breast MRI exam along with mammogram is recommended if the patient's lifetime risk is 20% or greater. This exam was interpreted at Station ID: [id number]. NOTE: For mammograms, a report in lay terms will be sent to the patient. Approximately 15% of breast malignancies will not be visualized mammographically. In the management of a palpable breast mass, a negative mammogram must not discourage biopsy of a clinically suspicious lesion. Electronically Signed By: Efrain Rodriguez M.D. aty/:12/15/2023 16:03:20 letter sent: Normal Exam ACR BI-RADS Category 2: Benign Finding(s) [id number]
== END ==
LOC: MAMMO 08:48
PROVIDERS: PCP Internal Medicine; Referring Provider Internal Medicine; Visit Provider Internal Medicine
DX: N60.01 Solitary cyst of right breast (principal); R92.333 Mammographic heterogeneous density, bilateral breasts
CPT/HCPCS: 77066; G0279

== ENCOUNTER → 2024-01-17 15:40 | Outpatient (CLI) | payer MEDICARE, MEDICAID, SELFPAY ==
[2023-03-13 17:21] VITALS: BMI 21.9
[2024-01-17 17:48] LABS: Alanine Aminotransferase 26 IU/L (<35); Albumin 4.2 g/dL (3.5-5.0); Albumin Globulin Ratio 1.2 (1.0-2.8); Alkaline Phosphatase 101 U/L (38-126); Aspartate Aminotransferase 36 IU/L (14-36); BUN Creatinine Ratio 21.2 (6-22); Bilirubin Total 0.5 mg/dL (0.2-1.3); Blood Urea Nitrogen 21 mg/dL (7-17); Calcium 9.4 mg/dL (8.4-10.2); Carbon Dioxide 30 mmol/L (22-32); Chloride 104 mmol/L (98-107); Estimated Glomerular Filt Rate > 60 mL/min (>60); Globulin 3.6 g/dL (1.7-4.1); Glucose 88 mg/dL (80-110); HEMOLYSIS 32 (0-50); Potassium 4.6 mmol/L (3.4-5.1); Sodium 138 mmol/L (137-145); Total Protein 7.8 g/dL (6.3-8.2)
== END ==
LOC: LAB 15:41
PROVIDERS: PCP Internal Medicine; Referring Provider Internal Medicine; Visit Provider Internal Medicine
DX: M81.0 Age-related osteoporosis without current pathological fracture (principal)
CPT/HCPCS: 36415; 80053

== ENCOUNTER → 2024-04-15 13:45 | Outpatient (CLI) | payer MEDICARE, MEDICAID, SELFPAY ==
[2023-03-13 17:21] VITALS: BMI 21.9
[2024-04-15 15:17] LABS: BUN Creatinine Ratio 23.8 (6-22); Blood Urea Nitrogen 20 mg/dL (7-17); Carbon Dioxide 28 mmol/L (22-32); Chloride 105 mmol/L (98-107); Estimated Glomerular Filt Rate > 60 mL/min (>60); Glucose 68 mg/dL (80-110); HEMOLYSIS 31 (0-50); Potassium 4.4 mmol/L (3.4-5.1); Sodium 137 mmol/L (137-145)
== END ==
PROVIDERS: PCP Internal Medicine; Referring Provider Internal Medicine; Visit Provider Internal Medicine
DX: E83.51 Hypocalcemia (principal)
CPT/HCPCS: 36415; 80048

== ENCOUNTER → 2024-10-02 15:31 | Outpatient (CLI) | payer MEDICARE, MEDICAID, SELFPAY ==
[2023-03-13 17:21] VITALS: BMI 21.9
--- NOTE | 2024-10-02 15:36 | DI.US.S_ITS ---
PROCEDURE: US PELVIC COMPLETE INDICATIONS: BILATERAL PELVIC PAIN TECHNIQUE: Real-time scanning was performed of the pelvic organs, with image documentation. Additional endovaginal scanning was necessary due to incomplete visualization of the adnexal and endometrial structures by transabdominal scanning. COMPARISON: None. FINDINGS: Uterus: Uterus is retroverted and atrophic in size at 5.5 x 3.8 x 2.6 cm. The myometrium is homogeneous. The endometrium measures 12 mm combined thickness. Ovaries: The right ovary measures 2.6 x 1.2 x 0.8 cm, with a calculated ovarian volume of 1.2 cc. The left ovary is not well visualized. The right ovary has a normal sonographic appearance. Less than 12 follicles can be seen in each ovary. No adnexal masses are seen. Other: No pathologic free abdominal or pelvic fluid. IMPRESSION: Unremarkable pelvic sonogram. We strive to produce accurate, complete, and clear reports of imaging services. To assist us in improving patient care, this report was composed using standard report templates and voice recognition software. Therefore, it may contain abnormal punctuation, insertions and/or omissions. Occasional wrong-word or sound-alike substitutions may occur. Though we review the report and make efforts to correct it, we do recommend that the report be read carefully in proper context to recognize any text inaccuracies. Dictated by: Sigifredo Austin M.D. on 10/03/2024 at 11:51 Approved by: Sigifredo Austin M.D. on 10/03/2024 at 12:02
== END ==
PROVIDERS: PCP Internal Medicine; Referring Provider Obstetrics & Gynecology; Visit Provider Obstetrics & Gynecology
DX: R10.2 Pelvic and perineal pain (principal)
CPT/HCPCS: 76830; 76856

== ENCOUNTER → 2024-10-10 10:14 | Outpatient (CLI) | payer MEDICARE, MEDICAID, SELFPAY ==
[2023-03-13 17:21] VITALS: BMI 21.9
[2024-10-10 10:51] LABS: Hematocrit 41.9 % (36-46); Mean Corpuscular HGB Conc 33.4 % (30-36); Mean Corpuscular Hemoglobin 31.3 PG (26-34); Mean Corpuscular Volume 93.6 fL (80-100); Platelet Count 204 X10^3/uL (150-400); Red Blood Cell Count 4.47 X10^6/uL (4.0-5.2); Red Cell Distribution Width 14.1 % (11.6-14.8); White Blood Cell Count 3.6 X10^3/uL (4.5-11.0)
[2024-10-10 11:13] LABS: Alanine Aminotransferase 24 IU/L (<35); Albumin 4.2 g/dL (3.5-5.0); Albumin Globulin Ratio 1.2 (1.0-2.8); Alkaline Phosphatase 72 U/L (38-126); Aspartate Aminotransferase 45 IU/L (14-36); BUN Creatinine Ratio 19.1 (6-22); Bilirubin Total 0.4 mg/dL (0.2-1.3); Blood Urea Nitrogen 18 mg/dL (7-17); Calcium 9.7 mg/dL (8.4-10.2); Carbon Dioxide 32 mmol/L (22-32); Chloride 101 mmol/L (98-107); Cholesterol 227 mg/dL (140-199); Estimated Glomerular Filt Rate > 60 mL/min (>60); Globulin 3.6 g/dL (1.7-4.1); Glucose 79 mg/dL (80-110); HEMOLYSIS 17 (0-50); Potassium 4.5 mmol/L (3.4-5.1); Sodium 135 mmol/L (137-145); Total Protein 7.8 g/dL (6.3-8.2); Triglycerides 44 mg/dL (35-150)
[2024-10-10 11:22] LABS: HDL Cholesterol 137 mg/dL (40-60); LDL Cholesterol Calculated 81 mg/dL (<100)
[2024-10-10 11:44] LABS: TSH w/ Reflex to FT4 1.39 uIU/mL (0.47-4.68)
== END ==
PROVIDERS: PCP Internal Medicine; Referring Provider Internal Medicine; Visit Provider Internal Medicine
DX: G35 Multiple sclerosis (principal); E78.2 Mixed hyperlipidemia; M81.0 Age-related osteoporosis without current pathological fracture
CPT/HCPCS: 36415; 80053; 80061; 84443; 85027

== ENCOUNTER 2024-10-31 07:05 | Day surgery (SDC) | payer MEDICARE, MEDICAID, SELFPAY ==
[2023-03-13 17:21] VITALS: BMI 21.9
[2024-10-25 13:07] VITALS: BMI 22.4
[2024-10-31] MEDS: SODIUM CHLORIDE 0.9% 1,000 ML 100 ML IV (08:13)
[2024-10-31] MEDS: FAMOTIDINE 20 MG/2 ML VIAL IV (08:16)
[2024-10-31 08:22] VITALS: BP 148/82; PULSE 84; RESP 16; TEMP 36.8; O2SAT 100
--- NOTE | 2024-10-31 08:39 | P.HPOB_ITS ---
History of Present Illness History of Present Illness Narrative: Lizzette Paez is a 64 year old female with recurrent NIC 2 and a thickened endometrial lining on u/s with an inadequate endometrial sample from office bx. [facility] Medical History Age-related osteoporosis without current pathological fracture Allergic reaction Bruises easily Chronic low back pain Cyst of right breast Eczematous dermatitis Generalized anxiety disorder Generalized headaches (Unknown) GERD with esophagitis HGSIL (high grade squamous intraepithelial dysplasia) History of appendicitis (~1979) Insomnia Laryngospasm Mild cognitive impairment Multiple sclerosis Spastic hemiplegia affecting right dominant side Surgical History Hx of appendectomy (~1979) Status post LEEP (loop electrosurgical excision procedure) of cervix Family History Grandfather Diabetes mellitus Family/Other Diabetes mellitus Social History household members: significant other Smoking Status: Former smoker alcohol intake: former Meds Home Medications and Allergies Home Medications Medication Instructions Recorded Confirmed Type cholecalciferol (vitamin D3) 50 50 mcg PO DAILY 07/23/20 10/11/24 History mcg (2,000 unit) capsule magnesium oxide 500 mg PO DAILY 07/23/20 10/31/24 History CBD as needed for sleep and PO 09/27/21 10/11/24 History spasticity alpha lipoic acid 1 tab PO DAILY 09/27/21 10/11/24 History epinephrine 0.3 mg/0.3 mL 0.3 mg IM ONCE 04/25/22 10/11/24 History injection, auto-injector gabapentin 100 mg capsule 100 mg PO .COMPLEX 04/25/22 10/31/24 History calcium citrate 1,000 mg tablet 1,000 mg PO DAILY 03/15/23 10/11/24 History vibegron 75 mg tablet (Gemtesa) 75 mg PO DAILY 10/04/23 10/31/24 History famotidine 20 mg tablet 20 mg PO BID #180 tabs 05/27/24 10/31/24 Rx baclofen 10 mg tablet 20 mg PO 4XD 10/31/24 10/31/24 History Allergies Allergy/AdvReac Type Severity Reaction Status Date / Time COVID-19 (SARS-CoV-2) AdvReac Mild tingling/na Verified 10/31/24 08:19 vaccine, zainab usea/rash NSAIDS (Non-Steroidal AdvReac Abdominal Verified 10/31/24 08:19 Anti-Inflamma Pain Exam Vital Signs (past 8 hours): - 10/31/24 08:22 Temperature 98.2 F Pulse Rate 84 Respiratory Rate 16 Blood Pressure 148/82 H Pulse Oximetry 100 Oxygen Delivery Method Room Air Oxygen Delivery Method Room Air Narrative Exam Narrative: HEENT: No thyromegaly, no anterior cervical or supraclavicular lymphadenopathy. Lungs:Clear to auscultation bilaterally, no wheezes. Cardiovascular: Regular rate and rhythm, no murmurs, rubs, or gallops. Abdomen: Well-healed scars. No hepatosplenomegaly. No masses palpable. External genitalia: Normal Vagina: Normal Cervix: s/p LEEP Bimanual exam: 5 Week size uterus. Mobile. Extremities: No edema Assessment & Plan Assessment & Plan narrative: Assessment: 64-year-old 2 para 1 with recurrent NIC 2 of the cervix and thickened endometrial lining on ultrasound Inadequate sampling of the endometrium on office biopsy Plan: D&C hysteroscopy and LEEP cone biopsy of the cervix The risks, benefits, and alternatives to the procedure were explained to the patient. The risks including bleeding, infection, and uterine perforation. She understands these risks and agrees to proceed. A full par Q was held and consent form was signed. Time-Based Coding :: [TOTAL MINUTES] spent with patient and on the chart (including review of chart, obtaining history, exam, reviewing outside data, placing orders, documenting exam and treatment plan, and counseling patient) on [DATE].
--- NOTE | 2024-10-31 08:47 | PM.PREOP ---
Pre-operative Note Interval Note History & Physical reviewed/Exam performed by Physician: Yes Changes to H&P: No H&P completed within 30 days and has changed as indicated here:: 10/31/24
[2024-10-31 09:55] VITALS: BP 121/84; PULSE 91; RESP 16; TEMP 36.3; O2SAT 100
[2024-10-31 10:00] VITALS: BP 116/83; PULSE 86; RESP 12; O2SAT 99
[2024-10-31 10:05] VITALS: BP 124/86; PULSE 85; RESP 16; O2SAT 99
--- NOTE | 2024-10-31 10:08 | P.OP_ITS ---
Operative Date/Time/Diagnoses Date of procedure: 10/31/24 Time of procedure: 10:08 Pre-op diagnosis: Recurrent NIC 2 Thickened endometrial lining, inadequate sample in the office Post-op diagnosis: same Procedure & Clinicians Procedure: Procedures Operation Date: 10/31/24 09:00 <No data on this case meets the specified criteria> Indications: 64-year-old 2 para 1 with recurrent NIC 2 and thickened endometrial lining on ultrasound. Inadequate endometrial sampling in the office. Surgeon: Ernestina De Leon Anesthesia Type: General (Endotracheal) Operative Notes Findings: 6 week size anteverted uterus Both fallopian tube ostia observed No polyps or fibroids in the uterus Closure Type: not applicable Specimen(s): endometrial curettings and other (Endocervical curettings, LEEP cone biopsy of the cervix with suture at 12 o'clock) Estimated blood loss (mL): 3 Blood products transfused: none Procedure in detail: After informed consent was obtained, the patient was taken to the operating room where she was placed in the dorsal supine position. After adequate general endotracheal anesthesia was achieved, she was placed in the dorsal lithotomy position, and prepped and draped in the usual sterile fashion. A bivalve speculum was placed into the vagina. A single-tooth tenaculum was placed on the anterior lip of the cervix. The cervical os was sequentially dilated until the hysteroscope could pass easily into the endometrial cavity. Initial inspection revealed both fallopian tube ostia. There were no polyps or fibroids. The hysteroscope was removed. Sharp curettage was performed yielding a moderate amount of endometrial curettings. A brush was used to obtain endocervical curettings. The single-tooth tenaculum was removed from the anterior lip of the cervix. The bivalve speculum was removed from the vagina. A plastic coated speculum was placed into the vagina and a plastic coated single-tooth tenaculum placed on the anterior lip of the cervix. Using a small endocervical loop, a LEEP cone biopsy of the cervix of the endocervical canal was performed. The ball cautery was used for hemostasis. The plastic coated single-tooth tenaculum was removed from the anterior lip of the cervix. The plastic coated bivalve s peculum was removed from the vagina. The specimen was tagged at the 12 o'clock position. Sponge, lap, and instrument counts were correct x2. The patient tolerated the procedure well, and was taken to PACU in stable condition. Complications: none Post-operative Condition: stable Disposition: PACU Plan for aftercare: Home after recovery
[2024-10-31 10:10] VITALS: BP 109/77; PULSE 81; RESP 12; TEMP 36.3; O2SAT 99
== END 2024-10-31 10:48 | disposition home or self-care (01) ==
PROVIDERS: PCP Internal Medicine; Referring Provider Obstetrics & Gynecology; Visit Provider Obstetrics & Gynecology
PROC: 0UDB8ZZ Extraction of Endometrium, Via Natural or Artificial Opening Endoscopic (ICD-10-PCS; CPT 58558; principal; 2024-10-31 09:00)
DX: N87.1 Moderate cervical dysplasia (principal); N84.0 Polyp of corpus uteri
CPT/HCPCS: 58558; 57522; J0330; J1100; J1885; J2250; J2405; J2704; J3010

== ENCOUNTER → 2024-12-20 15:48 | Outpatient (CLI) | payer MEDICARE, MEDICAID, SELFPAY ==
[2024-12-04 11:51] VITALS: BMI 21.9
--- NOTE | 2024-12-20 15:49 | DI.MG.S_ITS ---
BILATERAL DIGITAL SCREENING MAMMOGRAM 3D/2D WITH CAD: 12/20/2024 CLINICAL: Routine screening. Family history of breast cancer. Comparison is made to exams dated: 12/15/2023 mammogram, 11/08/2022 mammogram, and 10/13/2021 mammogram - [facility]. The breasts are heterogeneously dense, which may obscure small masses (category c / 51-75% glandular tissue). Current study was also evaluated with a Computer Aided Detection (CAD) system. No significant masses, calcifications, or other findings are seen in either breast. There has been no significant interval change. IMPRESSION: NEGATIVE There is no mammographic evidence of malignancy. A 1 year screening mammogram is recommended. Based on the Tyrer Cuzick model (a risk assessment model) the patient's lifetime risk is 7.2% and her 10 year risk is 3.3%. According to the ACR, ACS, and NCCN guidelines, an annual breast MRI exam along with mammogram is recommended if the patient's lifetime risk is 20% or greater. This exam was interpreted at Station ID: [id number]. NOTE: For mammograms, a report in lay terms will be sent to the patient. Approximately 15% of breast malignancies will not be visualized mammographically. In the management of a palpable breast mass, a negative mammogram must not discourage biopsy of a clinically suspicious lesion. Electronically Signed By: Lizabeth wright/telma:12/20/2024 17:19:28 letter sent: Normal Exam ACR BI-RADS Category 1: Negative
== END ==
PROVIDERS: PCP Internal Medicine; Referring Provider Internal Medicine; Visit Provider Internal Medicine
DX: Z12.31 Encounter for screening mammogram for malignant neoplasm of breast (principal); R92.333 Mammographic heterogeneous density, bilateral breasts; Z80.3 Family history of malignant neoplasm of breast
CPT/HCPCS: 77063; 77067

== ENCOUNTER 2025-04-04 13:09 | Emergency (ER) | payer MEDICARE, MEDICAID, SELFPAY ==
[2024-12-04 11:51] VITALS: BMI 21.9
[2025-04-04 13:18] VITALS: BP 110/69; PULSE 71; RESP 16; TEMP 36.8; O2SAT 99; BMI 22.1
[2025-04-04 13:46] LABS: Add Manual Diff / Slide Review NO; Basophils Absolute Auto 100 /uL (0-100); Basophils Percent Auto 1.4 % (0-2); Eosinophils Absolute Auto 100 /uL (0-450); Eosinophils Percent Auto 1.5 % (2-4); Hematocrit 41.5 % (36-46); Hemoglobin 13.9 g/dL (12.0-16.0); Lymphocytes Absolute Auto 1800 /uL (1100-4500); Lymphocytes Percent Auto 35.9 % (25-40); Mean Corpuscular HGB Conc 33.4 % (30-36); Mean Corpuscular Hemoglobin 31.5 PG (26-34); Mean Corpuscular Volume 94.3 fL (80-100); Monocytes Absolute Auto 500 /uL (0-900); Monocytes Percent Auto 8.9 % (3-14); Neutrophils Absolute Auto 2700 /uL (1500-7000); Neutrophils Percent Auto 52.3 % (50-75); Platelet Count 168 X10^3/uL (150-400); Red Cell Distribution Width 14.9 % (11.6-14.8); White Blood Cell Count 5.1 X10^3/uL (4.5-11.0)
[2025-04-04 13:47] LABS: Appearance Urine UA CLEAR; Bilirubin Urine UA NEGATIVE (NEGATIVE); Color Urine UA YELLOW; Glucose Urine UA NEGATIVE (Negative); Ketones Urine UA NEGATIVE (NEGATIVE); Leukocyte Esterase Urine UA NEGATIVE (NEGATIVE); Nitrite Urine UA NEGATIVE (Negative); Occult Blood Urine UA NEGATIVE (Negative); Protein Urine UA NEGATIVE (Negative); Specific Gravity Urine UA <=1.005 (1.000-1.035); Urobilinogen Urine UA 0.2 E.U./dL (0.2)
[2025-04-04 13:48] LABS: Bacteria Urine None Seen; Culture Indicated Urine Cult Not Indicated; RBC Urine None Seen (0-5/HPF); Squamous Epithelial Cell Urine None Seen (0-5/HPF); Urine Volume 10mL (spun); WBC Urine None Seen (0-5/HPF)
[2025-04-04 13:51] LABS: Alanine Aminotransferase 23 IU/L (<35); Albumin 4.4 g/dL (3.5-5.0); Albumin Globulin Ratio 1.4 (1.0-2.8); Alkaline Phosphatase 68 U/L (38-126); Aspartate Aminotransferase 32 IU/L (14-36); BUN Creatinine Ratio 16.7 (6-22); Bilirubin Total 0.5 mg/dL (0.2-1.3); Blood Urea Nitrogen 13 mg/dL (7-17); Calcium 9.5 mg/dL (8.4-10.2); Carbon Dioxide 28 mmol/L (22-32); Chloride 103 mmol/L (98-107); Estimated Glomerular Filt Rate > 60 mL/min (>60); Globulin 3.1 g/dL (1.7-4.1); Glucose 68 mg/dL (70-99); HEMOLYSIS 25 (0-50); Lipase 106 U/L (23-300); Potassium 4.6 mmol/L (3.4-5.1); Sodium 138 mmol/L (137-145); Total Protein 7.5 g/dL (6.3-8.2)
--- NOTE | 2025-04-04 15:25 | DI.CT.S_ITS ---
PROCEDURE: CT ABDOMEN PELVIS W CON INDICATIONS: abd pain nausea TECHNIQUE: After the administration of intravenous contrast, axial sections acquired from the lung bases to the pubic symphysis. Coronal and sagittal reformats were performed. For radiation dose reduction, the following was used: automated exposure control, adjustment of mA and/or kV according to patient size. COMPARISON: None. FINDINGS: Image quality: Diagnostic. Lower Chest: 1 x 0.8 cm nodular density is seen in posterior aspect of right lung base series 5, image 25. Bibasilar dependent atelectasis is also seen. Heart size is normal, small hiatal hernia. ABDOMEN: Liver: No solid mass. Gallbladder: No radiopaque gallstones or wall thickening. Biliary ducts: No biliary dilation. Pancreas: No ductal dilation. Spleen: Size is within normal limits. Possible cyst within splenic parenchyma is seen. Adrenal Glands: No adrenal nodules. Kidneys and Ureters: Congenitally malrotated right kidney is noted. No hydronephrosis. No solid mass. No complex renal cystic lesion which requires follow up. Stomach and Bowel: There is no bowel obstruction. Qqvs-hs-lfnwiuhu fecal stasis throughout the colon is seen. No gross abnormal bowel wall thickening or mesenteric fat stranding. No abscess collection. Mild distal esophageal wall edema and thickening is seen concerning for low-grade esophagitis. There is also suggestion of diffuse gastric wall thickening particularly involving distal gastric wall concerning for gastritis. Peritoneum: No abnormal intraperitoneal fluid. No free air. Ventral Wall: No significant ventral hernia. Abdominal Nodes: No retroperitoneal or mesenteric adenopathy by size criteria. Vessels: Aorta and inferior vena cava are normal in size. PELVIS: Pelvic Organs: Unremarkable. Bladder: No bladder wall thickening, accounting for underdistention. Pelvic Nodes: No enlarged lymph nodes. Miscellaneous: No inguinal hernias are seen. Bones: No aggressive osseous abnormality. IMPRESSION: 1. Finding is concerning for distal esophagitis and gastritis. Clinical correlation is recommended. No small bowel or colon wall thickening. Ckrp-ks-juigjqvn constipation. No free fluid or free air. 2. Congenitally malrotated right kidney. No hydronephrosis or solid appearing renal lesion. 3. 1 x 0.8 cm nodular density is seen in posterior aspect of right lung base. Finding could represent focal nodular atelectasis. Neoplastic process cannot be excluded. Short-term CT chest follow-up in 3-6 months is recommended. Dictated by: Ganesh Reed M.D. on 04/04/2025 at 16:12 Approved by: Ganesh Reed M.D. on 04/04/2025 at 16:17
--- NOTE | 2025-04-04 15:28 | ED.ABDPAIN ---
HPI - Abdominal Pain General Chief Complaint: Abdominal Pain Stated Complaint: sharp pain stomach Time Seen by Provider: 04/04/25 15:12 Mode of arrival: Ambulatory History of Present Illness HPI narrative: 64-year-old female history of MS GERD appendectomy presents with right upper quadrant pain sharp and stabbing intermittent all associated with nausea over the last 2 3 days. Patient states today she had another attack and it woke her up from sleep today. Her last BM was earlier today and no issues eating or drinking. Patient denies fever, chills, cough, chest pain, shortness of breath, or UTI symptoms. Other than what is stated 14 point review of system is negative. Related Data Home Medications ?Medication ?Instructions ?Recorded ?Confirmed cholecalciferol (vitamin D3) 50 50 mcg PO DAILY 07/23/20 04/03/25 mcg (2,000 unit) capsule magnesium oxide 500 mg PO DAILY 07/23/20 04/03/25 CBD as needed for sleep and PO 09/27/21 04/03/25 spasticity alpha lipoic acid 1 tab PO DAILY 09/27/21 04/03/25 epinephrine 0.3 mg/0.3 mL 0.3 mg IM ONCE 04/25/22 04/03/25 injection, auto-injector gabapentin 100 mg capsule 100 mg PO .COMPLEX 04/25/22 04/03/25 calcium citrate 1,000 mg tablet 1,000 mg PO DAILY 03/15/23 04/03/25 vibegron 75 mg tablet (Gemtesa) 75 mg PO DAILY 10/04/23 04/03/25 baclofen 10 mg tablet 20 mg PO 4XD 10/31/24 04/03/25 Previous Rx's ?Medication ?Instructions ?Recorded famotidine 20 mg tablet 20 mg PO BID #180 tabs 05/27/24 pantoprazole 40 mg tablet,delayed 40 mg PO DAILY #30 tabs 04/04/25 release (Protonix) Allergies Allergy/AdvReac Type Severity Reaction Status Date / Time amoxicillin AdvReac Intermediate Vomiting Verified 04/04/25 13:19 mannitol (From Reclast) AdvReac Intermediate weight gain Verified 04/04/25 13:19 water for injection,sterile AdvReac Intermediate weight gain Verified 04/03/25 11:25 (From Reclast) zoledronic acid (From AdvReac Intermediate weight gain Verified 04/04/25 13:19 Reclast) COVID-19 (SARS-CoV-2) AdvReac Mild tingling/na Verified 04/04/25 13:19 vaccine, zainab usea/rash NSAIDS (Non-Steroidal AdvReac Abdominal Verified 04/04/25 13:19 Anti-Inflamma Pain Review of Systems Review of Systems ROS Unobtainable: All systems reviewed & are unremarkable except as noted in HPI and below Patient History Medical History Age-related osteoporosis without current pathological fracture Allergic reaction BPPV (benign paroxysmal positional vertigo) Bruises easily Chronic low back pain Cyst of right breast Eczematous dermatitis Generalized anxiety disorder Generalized headaches (Unknown) GERD with esophagitis HGSIL (high grade squamous intraepithelial dysplasia) History of appendicitis (~1979) Insomnia Laryngospasm Mild cognitive impairment Multiple sclerosis Spastic hemiplegia affecting right dominant side Surgical History Hx of appendectomy (~1979) Status post LEEP (loop electrosurgical excision procedure) of cervix Family History Grandfather Diabetes mellitus Family/Other Diabetes mellitus Social History household members: significant other alcohol intake: former alcohol intake frequency: holidays/special occasions only Exam Narrative Exam Narrative: GENERAL: [64] year old patient appears stated age. Well-developed patient, in mild distress. HEAD: Atraumatic. Normocephalic. EYES: Pupils equal round and reactive. Extraocular motions intact. No scleral icterus. No injection or drainage. NECK: Trachea midline. Non tender CARDIOVASCULAR: Regular rate and rhythm without murmurs, gallops, or rubs. RESPIRATORY: Clear to auscultation. Breath sounds equal bilaterally. No wheezes, rales, or rhonchi. GASTROINTESTINAL: Abdomen soft, RUQ TTP no r/r/g, nondistended. EXTREMITIES: No edema or joint tenderness. BACK: Nontender without deformity or crepitance. No flank tenderness. NEURO: AOx3. SKIN: No rash or erythema of visible areas Initial Vital Signs Initial Vital Signs: Vital Signs Temperature 98.2 F 04/04/25 13:18 Pulse Rate 71 04/04/25 13:18 Respiratory Rate 16 04/04/25 13:18 Blood Pressure 110/69 04/04/25 13:18 Pulse Oximetry 99 04/04/25 13:18 Oxygen Delivery Method Room Air 04/04/25 13:18 Course Orders Ordered: ED Orders 04/04/25 13:22 EKG-12 Lead Stat 04/04/25 13:30 Complete Blood Count AUTO DIFF Stat Comprehensive Metabolic Panel Stat Lipase Stat Urinalysis and Microscopic Stat 04/04/25 15:25 CT abdomen pelvis w con Stat Ondansetron HCl (Ondansetron 4 Mg/2 Ml Inj) 4 mg IV NOW PRN PRN Reason: Nausea And Vomiting Ondansetron HCl (Ondansetron 4 Mg Odt) 4 mg PO NOW PRN PRN Reason: Nausea And Vomiting Vital Signs Vital signs: Vital Signs - 8 hr 04/04/25 13:18 Temperature 98.2 F Pulse Rate 71 Respiratory Rate 16 Blood Pressure 110/69 Pulse Oximetry 99 Oxygen Delivery Method Room Air MDM - Abdominal Pain Lab Data 04/04/25 13:30 04/04/25 13:30 Labs: Lab Results 04/04/25 Range/Units 13:30 WBC 5.1 (4.5-11.0) X10^3/uL RBC 4.40 (4.0-5.2) X10^6/uL Hgb 13.9 (12.0-16.0) g/dL Hct 41.5 (36-46) % MCV 94.3 (80-100) fL MCH 31.5 (26-34) PG MCHC 33.4 (30-36) % RDW 14.9 H (11.6-14.8) % Plt Count 168 (150-400) X10^3/uL Neut % (Auto) 52.3 (50-75) % Lymph % (Auto) 35.9 (25-40) % [place] % (Auto) 8.9 (3-14) % Eos % (Auto) 1.5 L (2-4) % Baso % (Auto) 1.4 (0-2) % Neut # (Auto) 2700 (2202-4110) /uL Lymph # (Auto) 1800 (6872-7221) /uL [place] # (Auto) 500 (0-900) /uL Eos # (Auto) 100 (0-450) /uL Baso # (Auto) 100 (0-100) /uL Sodium 138 (137-145) mmol/L Potassium 4.6 (3.4-5.1) mmol/L Chloride 103 (98-107) mmol/L Carbon Dioxide 28 (22-32) mmol/L BUN 13 (7-17) mg/dL Creatinine 0.78 (0.52-1.04) mg/dL Estimated GFR > 60 (>60) mL/min BUN/Creatinine Ratio 16.7 (6-22) Glucose 68 L (70-99) mg/dL Calcium 9.5 (8.4-10.2) mg/dL Total Bilirubin 0.5 (0.2-1.3) mg/dL AST 32 (14-36) IU/L ALT 23 (<35) IU/L Alkaline Phosphatase 68 (38-126) U/L Total Protein 7.5 (6.3-8.2) g/dL Albumin 4.4 (3.5-5.0) g/dL Globulin 3.1 (1.7-4.1) g/dL Albumin/Globulin Ratio 1.4 (1.0-2.8) Lipase 106 (23-300) U/L Urine Color Yellow Urine Appearance Clear Urine pH 6.0 (4.5-8.0) Ur Specific Watson <=1.005 (1.000-1.035) Urine Protein Negative (Negative) Urine Glucose (UA) Negative (Negative) g/dL Urine Ketones Negative (NEGATIVE) Urine Occult Blood Negative (Negative) Urine Nitrate Negative (Negative) Urine Bilirubin Negative (NEGATIVE) Urine Urobilinogen 0.2 (0.2) E.U./dL Ur Leukocyte Esterase Negative (NEGATIVE) Urine RBC None seen (0-5/HPF) Urine WBC None seen (0-5/HPF) Ur Squamous Epith Cells None seen (0-5/HPF) Urine Bacteria None seen (None) Ur Culture Indicated? Cult not indicated Vol Urine Centrifuged 10ml (spun) Imaging Data CT scan - abdomen/pelvis: Radiologist's Impression: [address] [address] [address] Scan Report Signed Patient: Lizzette Paez MR#: [id number] : 1960 Acct:[id number] Age/Sex: 64 / F Date of Service: 04/04/25 Loc: ED Accession Number: [id number] Procedure: CT abdomen pelvis w con Ordering Provider: Feliz Glass D.O. PROCEDURE: CT ABDOMEN PELVIS W CON INDICATIONS: abd pain nausea TECHNIQUE: After the administration of intravenous contrast, axial sections acquired from the lung bases to the pubic symphysis. Coronal and sagittal reformats were performed. For radiation dose reduction, the following was used: automated exposure control, adjustment of mA and/or kV according to patient size. COMPARISON: None. FINDINGS: Image quality: Diagnostic. Lower Chest: 1 x 0.8 cm nodular density is seen in posterior aspect of right lung base series 5, image 25. Bibasilar dependent atelectasis is also seen. Heart size is normal, small hiatal hernia. ABDOMEN: Liver: No solid mass. Gallbladder: No radiopaque gallstones or wall thickening. Biliary ducts: No biliary dilation. Pancreas: No ductal dilation. Spleen: Size is within normal limits. Possible cyst within splenic parenchyma is seen. Adrenal Glands: No adrenal nodules. Kidneys and Ureters: Congenitally malrotated right kidney is noted. No hydronephrosis. No solid mass. No complex renal cystic lesion which requires follow up. Stomach and Bowel: There is no bowel obstruction. Zxer-oa-wwysjiaj fecal stasis throughout the colon is seen. No gross abnormal bowel wall thickening or mesenteric fat stranding. No abscess collection. Mild distal esophageal wall edema and thickening is seen concerning for low-grade esophagitis. There is also suggestion of diffuse gastric wall thickening particularly involving distal gastric wall concerning for gastritis. Peritoneum: No abnormal intraperitoneal fluid. No free air. Ventral Wall: No significant ventral hernia. Abdominal Nodes: No retroperitoneal or mesenteric adenopathy by size criteria. Vessels: Aorta and inferior vena cava are normal in size. PELVIS: Pelvic Organs: Unremarkable. Bladder: No bladder wall thickening, accounting for underdistention. Pelvic Nodes: No enlarged lymph nodes. Miscellaneous: No inguinal hernias are seen. Bones: No aggressive osseous abnormality. IMPRESSION: 1. Finding is concerning for distal esophagitis and gastritis. Clinical correlation is recommended. No small bowel or colon wall thickening. Dury-bd-wxhsukwb constipation. No free fluid or free air. 2. Congenitally malrotated right kidney. No hydronephrosis or solid appearing renal lesion. 3. 1 x 0.8 cm nodular density is seen in posterior aspect of right lung base. Finding could represent focal nodular atelectasis. Neoplastic process cannot be excluded. Short-term CT chest follow-up in 3-6 months is recommended. Dictated by: Ganesh Reed M.D. on 04/04/2025 at 16:12 Approved by: Ganesh Reed M.D. on 04/04/2025 at 16:17 [facility] Narrative Medical decision making narrative: All lab work vital signs nurse triage note medication list previous ER visits and all imaging studies reviewed. CT abdomen and pelvis concerning for distal esophagitis and gastritis but no small bowel or colon wall thickening and mild to moderate constipation with no free fluid or free air. Congenital malrotated right kidney no hydro or solid appearing renal lesion. 1 x 0.8 cm nodular density posterior aspect right lung base and to have a repeat CT scan in 3-6 months. Lab work shows no elevated white count or left shift electrolytes and LFTs were normal and lipase was normal and urine was clean. Differential diagnosis includes pancreatitis cholecystitis kidney stone kidney infection constipation UTI. Patient given Protonix here and will be discharged on Protonix prescription and to stop famotidine that she takes at home and clear liquid diet and advance as tolerated. Discharge Plan Departure Patient Disposition: Home Clinical Impression: Lung nodule Gastritis Qualifiers: Gastritis type: superficial Chronicity: acute Gastritis bleeding: without bleeding Qualified Code(s): K29.00 - Acute gastritis without bleeding Instructions: DI for Gastritis Activity Restrictions/Additional Instructions: Return with new or worsening symptoms. Take your medicines as directed and stop famotidine. Clear liquid diet advance as tolerated. Follow up with PCP regarding nodular density in posterior aspect of the right lung base for repeat scan in 3-6 months Prescriptions: New pantoprazole [Protonix] 40 mg tablet,delayed release (DR/EC) 40 mg PO DAILY Qty: 30 0RF No Action famotidine 20 mg tablet 20 mg PO BID Qty: 180 3RF cholecalciferol (vitamin D3) 50 mcg (2,000 unit) capsule 50 mcg PO DAILY magnesium oxide 500 mg tablet 500 mg PO DAILY alpha lipoic acid 600 mg 1 tab PO DAILY CBD as needed for sleep and spasticity PO gabapentin 100 mg capsule 100 mg PO .COMPLEX Rx Instructions: 100 mg orally 1 cap at noon, 2 caps at bedtime; epinephrine 0.3 mg/0.3 mL auto-injector 0.3 mg IM ONCE calcium citrate 1,000 mg tablet 1,000 mg PO DAILY Gemtesa 75 mg tablet 75 mg PO DAILY baclofen 10 mg tablet 20 mg PO 4XD Referrals: Dalton Ugarte MD [Primary Care Provider, Internal Medicine] Stand Alone Forms: Patient Portal/API
[2025-04-04] MEDS: PANTOPRAZOLE 40 MG VIAL IV (17:29)
[2025-04-04 17:47] VITALS: BP 131/75; PULSE 84; RESP 17; O2SAT 98
== END 2025-04-04 17:48 | disposition home or self-care (01) ==
PROVIDERS: Emergency Provider Family Medicine; PCP Internal Medicine
DX: K29.00 Acute gastritis without bleeding (principal); R91.1 Solitary pulmonary nodule; R11.0 Nausea
CPT/HCPCS: 36415; 74177; 80053; 81001; 83690; 85025; 96374; 99284; J2470; Q9967

== ENCOUNTER → 2025-05-15 18:26 | Outpatient (CLI) | payer MEDICARE, MEDICAID, SELFPAY ==
[2024-12-04 11:51] VITALS: BMI 21.9
== END ==
PROVIDERS: PCP Internal Medicine; Visit Provider Student in an Organized Health Care Education/Training Program
DX: J02.9 Acute pharyngitis, unspecified (principal)
CPT/HCPCS: 87070

== ENCOUNTER → 2025-07-07 09:27 | Outpatient (CLI) | payer MEDICARE, MEDICAID, SELFPAY ==
[2025-05-16 16:00] VITALS: BMI 21.9
--- NOTE | 2025-07-07 09:28 | DI.CT.S_ITS ---
PROCEDURE: CT CHEST WO CON INDICATIONS: RLL lung nodule TECHNIQUE: Noncontrast 2.0-2.5 mm thick sections acquired from the pulmonary apices to the posterior costophrenic angles. 7 mm thick axial MIP and 5 mm coronal and sagittal reformats were then acquired. For radiation dose reduction, the following was used: automated exposure control, adjustment of mA and/or kV according to patient size. COMPARISON: CT abdomen and pelvis on 04/04/2025. FINDINGS: Image quality: Diagnostic. Lower Neck: No enlarged lymph nodes. Thyroid: No thyroid nodules which require sonographic follow up, per consensus guidelines. Axillae: No enlarged lymph nodes. Chest Wall: Unremarkable. Bones: Unremarkable. Lungs and Pleura: No pneumothorax or pleural effusions. Right posterior basilar segment of the lower lobe linear scarring. Interval resolution of the prior subpleural pulmonary nodule, likely infectious/inflammatory in etiology. Calcified nodules in the posterior basilar segment of the left lower lobe likely represent sequela of prior granulomatous disease. No suspicious pulmonary nodule. No consolidation. Heart: Heart size is normal. No pericardial effusion. Thoracic Vessels: The aorta and pulmonary arteries demonstrate normal size. Mediastinum and Liset: No enlarged lymph nodes. Esophagus: No wall thickening. No hiatal hernia. Upper Abdomen: Visualized upper abdomen solid organs and bowel loops appear normal. IMPRESSION: Interval resolution of the right posterior lower lobe nodular opacity, likely infectious/inflammatory. No suspicious pulmonary nodule which requires follow-up. Fleischner Society criteria for SOLID lung nodule followup. Nodule size (mm)Low-risk patientHigh-risk patient<6 (single or multiple)No routine followup.Optional CT at 12 months. 6-8 (single or multiple)CT at 6-12 months, then optional CT at 18-24 mo.CT at 6-12 months, then CT at 18-24 months. >8 (single)CT at 3 months, PET-CT, or biopsy. Same as for low-risk pts. >8 (multiple)CT at 3-6 months, then optional CT at 18-24 mo.CT at 3-6 months, then CT at 18-24 months. Fleischner Society criteria for SUB-SOLID lung nodule followup. Solitary pure ground-glass nodules<6 mm (ground glass or part solid)No followup needed. 6 mm or larger (ground glass)CT at 6-12 months to confirm persistence, then CT every 2 years until 5 years.6 mm or larger (part solid)CT at 3-6 months to confirm persistence, then annual CT until 5 years if unchanged and solid component remains <6 mm. Multiple sub-solid nodules<6 mmCT at 3-6 months, then CT consider at 2 & 4 years for high risk patients. [address] at 3-6 months. Subsequent management based on most suspicious lesions. Recommendations do not apply to lung cancer screening, patients with immunosuppression, or patients with known primary cancer. Dictated by: Alex Langston M.D. on 07/07/2025 at 13:47 Approved by: Alex Langston M.D. on 07/07/2025 at 14:02
== END ==
LOC: CT 09:27
PROVIDERS: PCP Internal Medicine; Referring Provider Internal Medicine; Visit Provider Internal Medicine
DX: R91.1 Solitary pulmonary nodule (principal)
CPT/HCPCS: 71250

== ENCOUNTER → 2025-10-17 11:07 | Outpatient (CLI) | payer MEDICARE, MEDICAID, SELFPAY ==
[2025-05-16 16:00] VITALS: BMI 21.9
--- NOTE | 2025-10-17 11:08 | DI.CT.S_ITS ---
PROCEDURE: CT SINUS SCREEN WO CON INDICATIONS: chronic sinusitis TECHNIQUE: Noncontrast 3.0 mm axial images acquired from the frontal sinuses to the mid- sella, with coronal and sagittal reformats. For radiation dose reduction, the following was used: automated exposure control, adjustment of mA and/or kV according to patient size. COMPARISON: [facility], CT, CT SINUS WITHOUT CONTRAST, 01/14/2022, 10:50. FINDINGS: Image quality: Diagnostic Maxillary Sinuses: Moderate opacity of the left maxillary sinus likely due to mostly mucous cyst. Hypoplastic maxillary sinuses as before Ethmoid Air Cells: Mild anterior mucosal thickening Sphenoid Sinuses: Clear Frontal Sinuses: Mild opacity at the frontoethmoidal recess on the right Ostiomeatal Complexes: Partially occluded and significantly narrowed Miscellaneous: Focal opacity possibly polyp adjacent to the left middle turbinate. Visualized intraorbital contents are unremarkable. No significant nasal septum deviation. IMPRESSION: Hypoplastic maxillary sinuses and significant narrowing of the ostiomeatal complexes again seen. Moderate opacity of the left maxillary sinus mostly due to a mucous cyst. Mild opacity at the right frontal ethmoidal recess and mucosal thickening of the anterior ethmoid air cells. Focal opacity in the left nasal cavity adjacent to the middle turbinate, possibly polyp. Dictated by: Roby Powell M.D. on 10/17/2025 at 19:57 Approved by: Roby Powell M.D. on 10/17/2025 at 20:02
[2025-10-17 12:27] LABS: Blood Urea Nitrogen 17 mg/dL (7-17); Calcium 9.3 mg/dL (8.4-10.2); Carbon Dioxide 29 mmol/L (22-32); Chloride 102 mmol/L (98-107); Cholesterol 214 mg/dL (140-199); Estimated Glomerular Filt Rate > 60 mL/min (>60); Glucose 101 mg/dL (70-99); HEMOLYSIS < 15 (0-50); Potassium 3.9 mmol/L (3.4-5.1); Sodium 138 mmol/L (137-145); Triglycerides 56 mg/dL (35-150)
[2025-10-17 12:34] LABS: HDL Cholesterol 148 mg/dL (40-60)
== END ==
PROVIDERS: PCP Internal Medicine; Referring Provider Internal Medicine; Visit Provider Internal Medicine
DX: J32.4 Chronic pansinusitis (principal); J34.1 Cyst and mucocele of nose and nasal sinus; E78.2 Mixed hyperlipidemia
CPT/HCPCS: 36415; 70486; 80048; 80061; 84450